=== PATIENT | female | born 1945 | race Caucasian/White ===

== ENCOUNTER 2017-03-23 13:17 | Inpatient (IN) | payer OTHER ==
[~2017-03-23] VITALS: Ht 167.6 cm; Wt 109.1 kg
[~2017-03-23 13:17] MED LIST: AMITRIPTYLINE H25 MG; ASPIRIN E.C.81 MG; ATORVASTATIN CA10 M1 PO; BCOMPLEX; CIPROFLOXACIN500 MG PO; CITALOPRAM20 MG; DETROL LA4 MG; FOLIC ACID; GLIMEPIRIDE2 MG PO; LISINOPRIL HCTZ1 TA1; METFORMIN HYDR500 MG PO; METFORMIN500 MG; NEURONTIN600 MG; OMEPRAZOLE D/R20 MG; RANITIDINE300 MG PO; SIMVASTATIN80 MG; VERELAN SR 240240 MG; VITAMIN D34000 UNIT PO; ZOFRAN ODT4 MG SL
[2017-03-23 13:18] VITALS: BP 148/99
--- NOTE | 2017-03-23 13:23 | NUR ---
PATIENT STATES THAT SHE DID NOT TAKE ANY OF HER MEDICATION TODAY. TRINI QUILES
[2017-03-23 13:44] LABS: BASO % 0.3 % (0.0-1.0); EOS % 0.3 % (1.0-4.0); HEMATOCRIT 37.9 % (37.0-47.0); HEMOGLOBIN 12.3 g/dl (12.0-16.0); LYMPH # 1.2 10*3/uL (1.3-4.4); LYMPH % 16.8 % (27.0-41.0); MEAN CELL VOLUME 91.1 fl (81.0-99.0); MEAN CORPUSCULAR HGB 29.6 pg (27.0-31.0); MEAN CORPUSCULAR HGB CONC 32.5 g/dl (33.0-37.0); MEAN PLATELET VOLUME 8.4 fl (9.6-12.3); MONO # 0.4 10*3/uL (0.1-1.0); MONO % 5.3 % (3.0-9.0); NEUT # 5.4 10*3/uL (2.3-7.9); PLATELET COUNT AUTOMATED 219 10*3/uL (130-400); RED BLOOD COUNT 4.16 10*6/uL (4.10-5.10); RED CELL DISTRI WIDTH 13.3 % (0-14.5)
[2017-03-23 13:53] LABS: ACT PARTIAL THROMBO TIME 24.3 SECONDS (20.8-31.5); INTERNATIONAL NORM RATIO 0.9 (2.0-3.5)
[2017-03-23 13:59] LABS: ALBUMIN 3.7 gm/dl (3.1-4.5); CREATININE 1.25 mg/dL (0.55-1.02); MAGNESIUM 1.9 mg/dL (1.5-2.1); POTASSIUM 4.3 mmol/L (3.5-5.1)
[2017-03-23] MEDS ORDERED: LISINOPRIL-HCT1 EACH PO (15:39)
[2017-03-23] MEDS ORDERED: NATURE'S BLEND F1 MG PO (15:41)
[2017-03-23 16:00] VITALS: BP 152/73
--- NOTE | 2017-03-23 16:00 | NUR ---
A 71, admitted to , under the services of DRE Partida DO with a diagnosis of RLQ AMDOMINAL PAIN, NAUSEA,VOMITING, AND DIARHHEA. Chief complaint is N/V THAT BEGAN LAST NIGHT ACCOMPANIED WITH DIARRHEA. CRAMPING IN RLQ. Patient arrived via stretcher from ER. Monitor applied. Initial assessment completed. Vital signs taken and recorded. DRE PARTIDA DO notified of admission to the unit. Orders received. See assessment for past medical history, medications and allergies. Patient and/or family oriented to unit. [address] visitation policy reviewed. Clothing/patient valuable form completed. HELDER HASSAN
[2017-03-23] MEDS ORDERED: VERAPAMIL HCL240 M2 PO (16:23)
[2017-03-23] MEDS ORDERED: NEURONTIN300 MG PO (16:23)
[2017-03-23] MEDS ORDERED: METFORMIN1000 MG PO (16:23)
--- NOTE | 2017-03-23 16:25 | NUR ---
VERIFIED MEDS WITH JT AT [facility]
--- NOTE | 2017-03-23 16:47 | NUR ---
DIANA STATED SHE ALREADY SPOKE WITH DR DE JESUS. NO NEED TO CALL.
--- NOTE | 2017-03-23 17:19 | NUR ---
PATIENT MEDICATED WITH IVP MORPHINE FOR PAIN 10/10 IN HER ABDOMEN.
--- NOTE | 2017-03-23 18:15 | NUR ---
PATIENT STATES MEDICATION EFFECTIVE
--- NOTE | 2017-03-23 18:24 | NUR ---
PATIENT MEDICATED WITH IVP ZOFRAN FOR NAUSEA
--- NOTE | 2017-03-23 18:52 | NUR ---
SPOKER WITH DIANA. PATIENT IS GETTING INSULIN ACHS AND BGM WAS ORDERED Q6. I CHANGED BGM TO ACHS. ALSO NOTIFIED DIANA THAT THE FIRST BAG OF D5NS WAS GIVEN BEFORE THE ORDER CAME UP TO GIVE 2 BAGS SO IT LOOKS LIKE 1 BAG WAS NOT GIVEN BUT IT WAS. SHE STATED THAT IS FINE.
[2017-03-23 20:00] VITALS: BP 131/55
[2017-03-24] VITALS: BP 130/59
--- NOTE | 2017-03-24 01:53 | NUR ---
24 HR chart check completed.
--- NOTE | 2017-03-24 06:04 | NUR ---
Medicated with Zofran IV prn for nausea. Will monitor effectiveness. Call light within reach.
[2017-03-24 06:23] LABS: BASO % 0.1 % (0.0-1.0); EOS % 0.1 % (1.0-4.0); HEMOGLOBIN 12.3 g/dl (12.0-16.0); LYMPH # 1.1 10*3/uL (1.3-4.4); LYMPH % 12.9 % (27.0-41.0); MEAN CELL VOLUME 92.2 fl (81.0-99.0); MEAN CORPUSCULAR HGB 29.9 pg (27.0-31.0); MEAN CORPUSCULAR HGB CONC 32.4 g/dl (33.0-37.0); MEAN PLATELET VOLUME 8.6 fl (9.6-12.3); MONO # 0.6 10*3/uL (0.1-1.0); MONO % 6.7 % (3.0-9.0); NEUT # 6.7 10*3/uL (2.3-7.9); NEUT % 79.8 % (47.0-73.0); PLATELET COUNT AUTOMATED 216 10*3/uL (130-400); RED BLOOD COUNT 4.12 10*6/uL (4.10-5.10); RED CELL DISTRI WIDTH 13.3 % (0-14.5); WHITE BLOOD COUNT 8.4 10*3/uL (4.8-10.8)
[2017-03-24 06:45] LABS: ALBUMIN 3.2 gm/dl (3.1-4.5); ALKALINE PHOSPHATASE 61 U/L (45-117); BUN 16 mg/dl (7-24); CHLORIDE 103 mmol/L (98-107); CHOLESTEROL 190 mg/dL (<200); CREATININE 1.01 mg/dL (0.55-1.02); FREE T4 1.17 ng/dl (0.76-1.46); HDL CHOLESTEROL 39 mg/dl (40-60); LDL CHOLESTEROL 109 mg/dL (9-159); MAGNESIUM 1.7 mg/dL (1.5-2.1); POTASSIUM 3.7 mmol/L (3.5-5.1); SGOT/AST 14 IU/L (3-35); SGPT/ALT 16 U/L (12-78); SODIUM 141 mmol/L (136-145); TOTAL PROTEIN 7.1 gm/dL (6.4-8.2); TRIGLYCERIDES 211 mg/dl (<150); VLDL CHOLESTEROL 42 mg/dL (6-40)
[2017-03-24 08:00] VITALS: BP 131/65
[2017-03-24 08:44] LABS: VITAMIN D, 25-HYDROXY 48.5 ng/mL (30-100)
[2017-03-24 12:00] VITALS: BP 136/87
[2017-03-24 16:00] VITALS: BP 140/65
[2017-03-24 20:00] VITALS: BP 138/60
[2017-03-25] VITALS: BP 140/60
--- NOTE | 2017-03-25 00:24 | NUR ---
24 HR chart check completed.
--- NOTE | 2017-03-25 00:48 | NUR ---
Medicated with Zofran IV prn for nausea. Will monitor effectiveness. Call light within reach.
--- NOTE | 2017-03-25 01:50 | NUR ---
Patient resting quietly in bed with eyes closed. Zofran effective. Will continue to monitor. Call light within reach.
[2017-03-25 05:52] LABS: BASO % 0.2 % (0.0-1.0); EOS % 0.1 % (1.0-4.0); HEMATOCRIT 39.4 % (37.0-47.0); HEMOGLOBIN 12.4 g/dl (12.0-16.0); LYMPH # 1.2 10*3/uL (1.3-4.4); LYMPH % 13.9 % (27.0-41.0); MEAN CELL VOLUME 92.9 fl (81.0-99.0); MEAN CORPUSCULAR HGB 29.2 pg (27.0-31.0); MEAN CORPUSCULAR HGB CONC 31.5 g/dl (33.0-37.0); MEAN PLATELET VOLUME 8.5 fl (9.6-12.3); MONO # 0.8 10*3/uL (0.1-1.0); MONO % 9.1 % (3.0-9.0); NEUT # 6.8 10*3/uL (2.3-7.9); PLATELET COUNT AUTOMATED 214 10*3/uL (130-400); RED BLOOD COUNT 4.24 10*6/uL (4.10-5.10); RED CELL DISTRI WIDTH 13.4 % (0-14.5); WHITE BLOOD COUNT 8.9 10*3/uL (4.8-10.8)
[2017-03-25 06:01] LABS: BUN 17 mg/dl (7-24); CHLORIDE 106 mmol/L (98-107); MAGNESIUM 1.8 mg/dL (1.5-2.1); PHOSPHOROUS 2.6 mg/dL (2.5-4.9); POTASSIUM 3.9 mmol/L (3.5-5.1); SODIUM 143 mmol/L (136-145)
[2017-03-25 08:00] VITALS: BP 120/64
--- NOTE | 2017-03-25 11:30 | NUR ---
DR. CHARLES NOTIFIED OF CONSULT. NEW ORDERS GIVEN.
[2017-03-25 12:00] VITALS: BP 130/61
[2017-03-25 16:00] VITALS: BP 139/61
--- NOTE | 2017-03-25 17:49 | NUR ---
IV SITE RIGHT FA INFILTRATED, IV REMOVED IV STARTED IN LEFT FOREARM, #22, FIRST ATTEMPT. BLOOD RETURN, FLUSHED WITHOUT DIFFICULTY.
[2017-03-25 20:00] VITALS: BP 127/45
--- NOTE | 2017-03-25 20:08 | NUR ---
PT. RESTING IN BED. IVF CONTINUE ORDERED VIA LA, SITE ASYMPT. LUNGS DIMINISHED BILAT, PULSE OX 97% ON RA. ABDOMEN SOFT, NONDISTENDED AND NORMO. NO PERIPHERAL EDEMA NOTED. FELY TOWNSEND RN
[2017-03-26] VITALS: BP 113/59
--- NOTE | 2017-03-26 06:00 | NUR ---
Patient resting quietly with no c/o discomfort. Respirations easy and regular. Vital signs stable. No overt distress. LIZZ FU R
[2017-03-26 08:00] VITALS: BP 138/62
--- NOTE | 2017-03-26 08:00 | NUR ---
Search Engine Marketing Specialist in to talk to patient. Patient states lives at [address] with HER BOYFRIEND. There are 3 steps in the home. Physician: DR RODRÍGUEZ [place] [facility] Home health services: NONE Patient's level of ADLs: INDEPENDENT Patient has working utilities: YES DME: NONE Follow-up physician's appointment after d/c: WILL BE MADE PRIOR TO DC Does patient want to access PORTAL?: Discharge plan HOME. LULY WHITTINGTON
[2017-03-26 12:00] VITALS: BP 112/63
--- NOTE | 2017-03-26 13:08 | NUR ---
PHYSICAL THERAPY PAtient reports she is (I) and has no PT needs. Thank you for this referral. Janiya Richard,PT
[2017-03-26 16:00] VITALS: BP 139/58
[2017-03-27] VITALS: BP 111/42
--- NOTE | 2017-03-27 03:00 | NUR ---
PT RESTING QUIETLY IN BED. NO FURHTER S/S OF DISTRESS NOTED. PAIN MED EFFECTIVE.
[2017-03-27 05:58] LABS: BASO % 0.2 % (0.0-1.0); EOS # 0.1 10*3/uL (0.0-0.4); LYMPH # 2.3 10*3/uL (1.3-4.4); LYMPH % 44.5 % (27.0-41.0); MEAN CELL VOLUME 91.2 fl (81.0-99.0); MEAN CORPUSCULAR HGB 29.2 pg (27.0-31.0); MEAN PLATELET VOLUME 8.6 fl (9.6-12.3); MONO # 0.4 10*3/uL (0.1-1.0); MONO % 6.9 % (3.0-9.0); NEUT # 2.4 10*3/uL (2.3-7.9); NEUT % 47.4 % (47.0-73.0); PLATELET COUNT AUTOMATED 184 10*3/uL (130-400); RED BLOOD COUNT 3.29 10*6/uL (4.10-5.10); RED CELL DISTRI WIDTH 13.1 % (0-14.5); WHITE BLOOD COUNT 5.1 10*3/uL (4.8-10.8)
[2017-03-27 06:14] LABS: HEMOGLOBIN 9.6 g/dl (12.0-16.0)
[2017-03-27 06:22] LABS: BUN 17 mg/dl (7-24); CHLORIDE 108 mmol/L (98-107); CREATININE 0.79 mg/dL (0.55-1.02); POTASSIUM 3.5 mmol/L (3.5-5.1); SODIUM 140 mmol/L (136-145)
[2017-03-27 08:00] VITALS: BP 126/50
--- NOTE | 2017-03-27 14:11 | NUR ---
Discharge instructions reviewed with patient/family. Patient receptive and verbalizes understanding. Follow-up care arranged. Written instructions given to patient/family. SINA DOMINGO.
== END 2017-03-27 14:11 | disposition home or self-care (01) | DRG 394 ==
LOC: ED 13:17 → 4E 15:11 → EDHOLD 15:11 → 4E 15:24
PROVIDERS: Emergency Medicine; Internal Medicine; Registered Nurse; ADMIT Internal Medicine
DX: K43.9 Ventral hernia without obstruction or gangrene (principal); K56.7 Ileus, unspecified; E11.40 Type 2 diabetes mellitus with diabetic neuropathy, unspecified; E11.65 Type 2 diabetes mellitus with hyperglycemia; E66.01 Morbid (severe) obesity due to excess calories; K21.9 Gastro-esophageal reflux disease without esophagitis; E78.5 Hyperlipidemia, unspecified; K57.30 Diverticulosis of large intestine without perforation or abscess without bleeding; N28.1 Cyst of kidney, acquired; E86.0 Dehydration; E86.9 Volume depletion, unspecified; Z96.653 Presence of artificial knee joint, bilateral; Z98.51 Tubal ligation status; Z90.49 Acquired absence of other specified parts of digestive tract; Z68.38 Body mass index [BMI] 38.0-38.9, adult; Z79.84 Long term (current) use of oral hypoglycemic drugs; Z79.899 Other long term (current) drug therapy; Z83.3 Family history of diabetes mellitus; Z82.49 Family history of ischemic heart disease and other diseases of the circulatory system; Z80.1 Family history of malignant neoplasm of trachea, bronchus and lung

== ENCOUNTER → 2017-05-30 | Day surgery (SDC) | payer OTHER ==
[~2017-05-30] VITALS: Ht 167.6 cm; Wt 98.4 kg
[~2017-05-30] MED LIST changes: +LISINOPRIL-HCT1 EACH PO; +METFORMIN1000 MG PO; +NATURE'S BLEND F1 MG PO; +NEURONTIN300 MG PO; +VERAPAMIL HCL240 M2 PO
--- NOTE | ~2017-05-30 | O ---
[place], [place] OPERATIVE NOTE NAME: KULDIP WEBER UNIT #: [id number] ROOM: DOCTOR: ADAM CHARLES MD BIRTHDATE: [birth year] DOS: GASTROENDOSCOPIC REPORT This is a 71-year-old patient who was presented with chief complaint of constipation, undergoing investigation. ALLERGIES: No known medication. FAMILY HISTORY: Noncontributory. PAST MEDICAL HISTORY: Depression, neuropathy, hypercholesterolemia. PAST SURGICAL HISTORY: Right carpal tunnel, cholecystectomy, bilateral feet podiatric management, and bilateral knee prosthesis. PROCEDURE: Today's procedure part of investigation is colonoscopy. PREMEDICATION: Versed and Diprivan. SCOPE: Olympus folding colonoscope 10L video. REPORT: After putting the patient in the left lateral position and after application of lubricant to the scope, scope was introduced; thereafter, under direct visualization, advanced through the length of colon with some difficulty. Difficulty being presence of semi-liquid stool throughout the entire length of colon; therefore, visualization was only limited to about 10%-15% to negotiate the scope forward. Therefore, scope was gradually withdrawn. The patient extubated, tolerated procedure well. IMPRESSION: Retained stool all along the length of the colon without visualization of the cecum, diverticulosis per CT scan. PLAN AND DISCUSSION: This patient requires 2-day colonic prep, which is going to be organized in future. [place], [place] OPERATIVE NOTE NAME: KULDIP WEBER UNIT #: [id number] ROOM: DOCTOR: ADAM CHARLES MD BIRTHDATE: [birth year] ADAM CHARLES MD CM:OPRECORD:OPERATIVE NOTE [id number] ADAM CHARLES MD 05/30/17 1032 interface
[2017-05-30 07:20] VITALS: BP 135/75
[2017-05-30 08:27] VITALS: BP 111/43
[2017-05-30 08:42] VITALS: BP 110/69
[2017-05-30 08:57] VITALS: BP 122/65
== END | disposition home or self-care (01) ==
LOC: SDC 05-25 09:30
DX: K57.30 Diverticulosis of large intestine without perforation or abscess without bleeding (principal); K59.00 Constipation, unspecified; F32.9 Major depressive disorder, single episode, unspecified; E78.00 Pure hypercholesterolemia, unspecified; I10 Essential (primary) hypertension; E11.9 Type 2 diabetes mellitus without complications; Z87.891 Personal history of nicotine dependence; Z90.49 Acquired absence of other specified parts of digestive tract; Z96.653 Presence of artificial knee joint, bilateral; Z98.51 Tubal ligation status; Z79.84 Long term (current) use of oral hypoglycemic drugs; Z79.899 Other long term (current) drug therapy; K21.9 Gastro-esophageal reflux disease without esophagitis; J45.909 Unspecified asthma, uncomplicated; M19.90 Unspecified osteoarthritis, unspecified site; Z83.3 Family history of diabetes mellitus

== ENCOUNTER → 2020-01-07 | Day surgery (SDC) | payer MEDICARE ==
[~2020-01-07] VITALS: Ht 167.6 cm; Wt 114.8 kg
[~2020-01-07] MED LIST changes: +ASPIRIN CHEWABL81 MG PO; +CITALOPRAM20 MG PO; +FUROSEMIDE40 MG PO; +HYDRALAZINE10 MG PO; +LIPITOR10 MG PO; +OFLOXACIN 5 ML5 M1 OP; +OMEPRAZOLE MAGN20 MG PO; +TOPROL XL25 MG PO
[2020-01-07 07:30] VITALS: BP 165/64
[2020-01-07 09:05] VITALS: BP 142/60
== END | disposition home or self-care (01) ==
LOC: SDC 01-01 08:45
DX: H25.12 Age-related nuclear cataract, left eye (principal); I10 Essential (primary) hypertension; E11.36 Type 2 diabetes mellitus with diabetic cataract; K21.9 Gastro-esophageal reflux disease without esophagitis; Z79.82 Long term (current) use of aspirin; Z79.84 Long term (current) use of oral hypoglycemic drugs; Z79.899 Other long term (current) drug therapy; Z83.3 Family history of diabetes mellitus

== ENCOUNTER 2020-01-14 13:35 | Inpatient (IN) | payer MEDICARE ==
[~2020-01-14] VITALS: Ht 167.6 cm; Wt 117.1 kg
[2020-01-14] VITALS (18 sets, daily range): BP systolic 101–149; BP diastolic 42–66
[~2020-01-14 13:35] MED LIST changes: -OFLOXACIN 5 ML5 M1 OP
[2020-01-14 14:31] LABS: MEAN CELL VOLUME 61.8 fl (81.0-99.0); MEAN CORPUSCULAR HGB 14.7 pg (27.0-31.0); MEAN CORPUSCULAR HGB CONC 23.8 g/dl (33.0-37.0); MEAN PLATELET VOLUME 9.3 fl (9.6-12.3); NUCLEATED RED BLOOD CELL 0.1 10*3/uL (0.0-0.0); NUCLEATED RED BLOOD CELL 1.3 % (0.0-0.0); PLATELET COUNT AUTOMATED 291 10*3/uL (130-400); RED BLOOD COUNT 2.59 10*6/uL (4.10-5.10); RED CELL DISTRI WIDTH 21.7 % (0-14.5); WHITE BLOOD COUNT 4.6 10*3/uL (4.8-10.8)
[2020-01-14 14:43] LABS: ACT PARTIAL THROMBO TIME 21.7 SECONDS (20.0-32.1); INTERNATIONAL NORM RATIO 1.1 (2.0-3.5)
--- NOTE | 2020-01-14 14:55 | NUR ---
PT ASSISTED UP TO BSC TO VOID---AZEEM SIBLEY RN
[2020-01-14 15:00] LABS: ALBUMIN 3.1 gm/dl (3.1-4.5); ALKALINE PHOSPHATASE 48 U/L (45-117); BUN 17 mg/dl (7-24); CHLORIDE 105 mmol/L (98-107); CREATININE 1.16 mg/dL (0.55-1.02); POTASSIUM 3.6 mmol/L (3.5-5.1); SGOT/AST 14 IU/L (3-35); SGPT/ALT 18 U/L (12-78); SODIUM 141 mmol/L (136-145)
[2020-01-14 15:04] LABS: TROPONIN I < 0.015 ng/ml (<0.045)
[2020-01-14 15:05] LABS: BASOPHILS 1 % (0-1); TOTAL CELLS COUNTED 100 #CELLS
[2020-01-14 15:06] LABS: OVALOCYTES FEW; PLATELET SUFFICIENCY NORMAL (NORMAL)
--- NOTE | 2020-01-14 17:02 | NUR ---
A 74, admitted to [facility], under the services of CARLA Marshall DO with a diagnosis of Anemia. Chief complaint is weakness and increasing shortness of breath. Patient arrived via stretcher from ER. Monitor applied. Initial assessment completed. Vital signs taken and recorded. CARLA MARSHALL DO notified of admission to the unit. Orders received. See assessment for past medical history, medications and allergies. Patient and/or family oriented to unit. [facility] visitation policy reviewed. Clothing/patient valuable form completed. DOTTIE WORTHY
--- NOTE | 2020-01-14 17:20 | NUR ---
DR WALTERS NOTIFIED OF CONSULT. NEW ORDERS RECEIVED FOR EGD IN AM.
--- NOTE | 2020-01-14 17:29 | NUR ---
DR HALL UPDATED ON PLAN OF CARE. DIET ORDER RECEIVED.
--- NOTE | 2020-01-14 17:40 | NUR ---
FIRST UNIT OF BLOOD STARTED. VSS. PT INSTRUCTED ON S/S BLOOD TRANSFUSION REACTION AND TO NOTIFY RN IF ANY. PT VERBALIZED UNDERSTANDING.
--- NOTE | 2020-01-14 17:55 | NUR ---
BLOOD TRNAFUSING WITHOUT DIFFICULTY. PT DENIES COMPLAINTS AT PRESENT TIME.
--- NOTE | 2020-01-14 18:15 | NUR ---
VSS. NO DISTRESS NOTED. PT DENIES COMPLAINTS. BLOOD CONTINUES TO TRANSFUSE WITHOUT DIFFICULTY.
--- NOTE | 2020-01-14 18:50 | NUR ---
Shift chart check completed.24 HR chart check completed.
--- NOTE | 2020-01-14 19:40 | NUR ---
ON ASSESSMENT PATIENT ALERT, ORIENTED, WATCHING TV. PACKED CELLS INFUSING WITHOUT SIGNS OF REACTION. INFUSION RATE INCREASED TO 150/HR. PATIENT AWARE SHE'S FOR EGD IN AM. WILL CONTINUE TO MONITOR.
--- NOTE | 2020-01-14 20:54 | NUR ---
TRANSFUSION COMPLETE. SENT FOR 2ND UNIT.
--- NOTE | 2020-01-14 21:09 | NUR ---
Patient identified by arm band. Vital signs recorded. Blood unit number verified by 2 R.N.'s,myself and Martina Palacio I.V. site satisfactory. Unit #2 started at a KVO rate with Normal Saline. MARGUERITE SILVA L
--- NOTE | 2020-01-14 21:24 | NUR ---
PT IN CONSTANT ATTENDANCE FOR FIRST 15 MINUTES TRANSFUSION. NO APPARENT IMMEDIATE TRANSFUSION REACTION. INFUSION RATE INCREASED TO 150/HR.
--- NOTE | 2020-01-14 21:29 | NUR ---
DR REYNOLDS NOTIFIED THAT MEDS ARE RECONCILED IN THE CHART. ORDERS RECEIVED. ALSO INFORMED HIM THAT I DID NOT COVER PT'S BSBS OF 151 PT DOESN'T NORMALLY TAKE INSULIN AND SHE WILL BE NPO AFTER MIDNIGHT.
--- NOTE | 2020-01-14 22:28 | NUR ---
TRANSFUSION CONTINUES. PT WANTS TO WAIT UNTIL MORNING TO DO HIBICLENS BATH.
[2020-01-15] VITALS (18 sets, daily range): BP systolic 116–171; BP diastolic 47–78
--- NOTE | 2020-01-15 00:12 | NUR ---
TRANSFUSION COMPLETE AT 0003. PT UP TO BSC TO VOID. REMINDED NPO FOR EGD IN AM.
[2020-01-15 01:59] LABS: MEAN CORPUSCULAR HGB CONC 27.5 g/dl (33.0-37.0); MEAN PLATELET VOLUME 9.5 fl (9.6-12.3); NUCLEATED RED BLOOD CELL 0.1 10*3/uL (0.0-0.0); NUCLEATED RED BLOOD CELL 0.8 % (0.0-0.0); PLATELET COUNT AUTOMATED 255 10*3/uL (130-400); RED BLOOD COUNT 2.94 10*6/uL (4.10-5.10); RED CELL DISTRI WIDTH 26.7 % (0-14.5); WHITE BLOOD COUNT 6.3 10*3/uL (4.8-10.8)
[2020-01-15 02:00] LABS: MEAN CELL VOLUME 69.4 fl (81.0-99.0)
[2020-01-15 02:02] LABS: HEMATOCRIT 20.4 % (37.0-47.0)
--- NOTE | 2020-01-15 02:04 | NUR ---
DR REYNOLDS NOTIFIED OF CRITICAL VALUE H/H 5.6/20.4.
[2020-01-15 02:19] LABS: MICROCYTOSIS MODERATE; PLATELET SUFFICIENCY NORMAL (NORMAL); TOTAL CELLS COUNTED 100 #CELLS
[2020-01-15 02:20] LABS: OVALOCYTES FEW; POLYCHROMASIA SLIGHT
--- NOTE | 2020-01-15 02:40 | NUR ---
IV LASIX PER ORDER. Patient identified by arm band. Vital signs recorded. Blood unit number verified by 2 R.N.'s,myself and Rosemarie Olguin I.V. site satisfactory. Unit#3 started at a KVO rate with Normal Saline. MARGUERITE SILVA L
--- NOTE | 2020-01-15 02:57 | NUR ---
STARTING TO STANLEY FROM IV LASIX.
--- NOTE | 2020-01-15 03:00 | NUR ---
PT IN CONSTANT ATTENDANCE FIRST 20 MINUTES OF TRANSFUSION, WITHOUT ANY SIGNS OF IMMEDIATE REACTION. INFUSION RATE INCREASED TO 150/HR.
--- NOTE | 2020-01-15 03:49 | NUR ---
PT UP TO BSC FREQUENTLY TO VOID AFTER EARLIER LASIX. TRANSFUSION CONTINUES.
--- NOTE | 2020-01-15 05:20 | NUR ---
KULDIP WEBER [id number] Please refer to the physician's history and physical for past medical history, comorbid conditions, and allergies. Diagnosis: ANEMIA Wilfredo Score: 19,LOW OR NO RISK WOUND DESCRIPTIONS: Wound Number: 1 Location of the wound: LEFT EAR LOBE Type of wound: scab Thickness: Partial Size: 0.4cm x 0.3cm x <0.1cm Tunneling: none Undermining: none Sinus Tract: none Presence of Exudate: none Amount: None Color: Red, brown Odor: None Periwound Skin Appearance: Normal Wound edges: approximated Pain (associated with wound): none at time of assessment How does patient state this happened? pt stated she keeps picking at the area she stated she has had the area for a little while now but is unsure how long Surface the patient is resting on: Isoflex SKIN PREVENTION RECOMMENDATION: 1. Pressure redistribution support surface as appropriate 2. Elevate heels 3. Remove boots/TEDS every shift and reapply 4. Head of bed 30 degrees as tolerated 5. Assess nutrition and hydration 6. Manage moisture 7. Avoid the use of containment devices while in bed 8. Use absorptive products on surfaces limit layers of linens on bed 9. Turn and reposition every 1-2 hours in bed and every 1 hour in chair as tolerated 10. Weight shifts every 15 minutes while up in chair 11. Offloading with pillows or device to keep heels elevated off bed 12. Monitor skin at least every shift 13. Inspect under medical devices twice a day WOUND TREATMENT RECOMMENDATIONS: Cleanse left ear lobe with nss and apply neosporin bid and cover with bandaid Patient states she will care for the area when she returns home and doesn't need to follow up in an outpatient setting at this time.
--- NOTE | 2020-01-15 05:30 | NUR ---
TRANSFUSION COMPLETE WITHOUT COMPLICATIONS.
[2020-01-15 07:40] LABS: HEMATOCRIT 24.5 % (37.0-47.0); MEAN CELL VOLUME 70.2 fl (81.0-99.0); MEAN CORPUSCULAR HGB 20.1 pg (27.0-31.0); MEAN CORPUSCULAR HGB CONC 28.6 g/dl (33.0-37.0); MEAN PLATELET VOLUME 8.9 fl (9.6-12.3); NUCLEATED RED BLOOD CELL 0.1 10*3/uL (0.0-0.0); NUCLEATED RED BLOOD CELL 1.2 % (0.0-0.0); PLATELET COUNT AUTOMATED 238 10*3/uL (130-400); RED BLOOD COUNT 3.49 10*6/uL (4.10-5.10); RED CELL DISTRI WIDTH 25.7 % (0-14.5); WHITE BLOOD COUNT 5.9 10*3/uL (4.8-10.8)
--- NOTE | 2020-01-15 07:40 | NUR ---
Dr. Gregg notified of wound care recommendations.
[2020-01-15 07:51] LABS: BUN 13 mg/dl (7-24); CHLORIDE 105 mmol/L (98-107); CREATININE 0.99 mg/dL (0.55-1.02); POTASSIUM 3.5 mmol/L (3.5-5.1); SODIUM 141 mmol/L (136-145)
[2020-01-15 07:54] LABS: CHOLESTEROL 76 mg/dL (<200); HDL CHOLESTEROL 33 mg/dl (40-60); LDL CHOLESTEROL 26 mg/dL (9-159); TRIGLYCERIDES 84 mg/dl (<150); VLDL CHOLESTEROL 17 mg/dL (6-40)
[2020-01-15 07:59] LABS: BASOPHILS 1 % (0-1); OVALOCYTES FEW; SCHISTOCYTES FEW; TOTAL CELLS COUNTED 100 #CELLS
[2020-01-15 08:00] LABS: MICROCYTOSIS MODERATE; PLATELET SUFFICIENCY NORMAL (NORMAL); POLYCHROMASIA SLIGHT; ROULEAUX SLIGHT; TARGET CELLS FEW
--- NOTE | 2020-01-15 08:12 | NUR ---
CONSENT OBTAINED FOR ESOPHAGOGASTRODUODENOSCOPY PROCEDURE WITH DR WALTERS. RN EXPLAINED REASON FOR PROCEDURE AND POSSIBLE RISKS. PATIENT VERBALIZED UNDERSTANDING.
--- NOTE | 2020-01-15 08:29 | NUR ---
PATIENT AWARE THAT SURGERY IS ON THEIR WAY, HAS ALREADY BEEN UP TO URINATE AND DENIES ANY NEEDS AT THIS TIME
[2020-01-15 09:29] LABS: VITAMIN D, 25-HYDROXY 68.3 ng/mL (30-100)
--- NOTE | 2020-01-15 15:30 | NUR ---
PATIENT BACK FROM NUCULEAR MEDICINE SCAN AT THIS TIME. PATIENT IN STABLE CONDITION. ALL VITAL SIGNS STABLE. DR EGAN AND DR HALL IN TO PATIENT.
--- NOTE | 2020-01-15 15:44 | NUR ---
NURSING SUOERVISOR AWARE OF TRANSFER TO [facility]
--- NOTE | 2020-01-15 16:28 | NUR ---
Financial Services Professional in to talk to patient. Patient states lives at HOME with BOYFRIEND. There are NO steps in the home. Physician: ANNE Pharmacy: [facility] Home health services: NONE Patient's level of ADLs: INDEPENDENT Patient has working utilities: YES DME: NONE Follow-up physician's appointment after d/c: WILL BE MADE BY HOSPITALIST NURSE DIRECTOR ON DISCHARGE Does patient want to access PORTAL?: NO Discharge plan PT LIVES AT HOME WITH HER BOYFRIEND AND IS INDEPENDENT IN HER CARE. DENIES SHE WILL HAVE ANY NEEDS ON DISCHARGE. PLANS TO RETURN HOME WHEN MEDICALLY STABLE. WILL CONTINUE TO FOLLOW. STATES SHE WILL HAVE A RIDE HOME. BENJAMIN KHAN
[2020-01-15] MEDS ORDERED: OFLOXACIN 5 ML5 M1 OP (16:29)
--- NOTE | 2020-01-15 20:07 | NUR ---
1930 PT RESTING IN BED ON LEFT SIDE. CALL LIGHT IN REACH. AWAKE AND ALERT. NO DISTRESS NOTED. DENIES C/O'S PAIN OR DISCOMFORT AT THIS TIME. HEP LOCK INTACT.
--- NOTE | 2020-01-15 21:04 | NUR ---
2104 RESTORIL PO GIVEN FOR SLEEP. WILL MONITOR.
--- NOTE | 2020-01-15 22:04 | NUR ---
2204 EARLIER RESTORIL EFFECTIVE. RESTING IN BED WITH EYES CLOSED. APPEARS TO BE SLEEPING.
[2020-01-16] VITALS (12 sets, daily range): BP systolic 127–171; BP diastolic 45–79
--- NOTE | 2020-01-16 02:49 | NUR ---
REMAINS SLEEPING WITHOUT DISTRESS.
[2020-01-16 06:01] LABS: BUN 11 mg/dl (7-24); CHLORIDE 108 mmol/L (98-107); CREATININE 0.82 mg/dL (0.55-1.02); POTASSIUM 3.7 mmol/L (3.5-5.1); SODIUM 142 mmol/L (136-145)
[2020-01-16 06:02] LABS: IRON 22 ug/dL (50-170); TOTAL IRON BINDING CAPACITY 354 ug/dl (250-450)
[2020-01-16 06:07] LABS: HEMATOCRIT 23.5 % (37.0-47.0); MEAN CELL VOLUME 68.7 fl (81.0-99.0); MEAN CORPUSCULAR HGB 19.9 pg (27.0-31.0); MEAN CORPUSCULAR HGB CONC 28.9 g/dl (33.0-37.0); MEAN PLATELET VOLUME 9.1 fl (9.6-12.3); NUCLEATED RED BLOOD CELL 0.1 10*3/uL (0.0-0.0); NUCLEATED RED BLOOD CELL 0.8 % (0.0-0.0); PLATELET COUNT AUTOMATED 209 10*3/uL (130-400); RED BLOOD COUNT 3.42 10*6/uL (4.10-5.10); WHITE BLOOD COUNT 6.6 10*3/uL (4.8-10.8)
--- NOTE | 2020-01-16 06:11 | NUR ---
SLEPT WELL THIS SHIFT. REMAINS WIHTOUT C/O'S.
[2020-01-16 06:48] LABS: BASOPHILS 1 % (0-1); TOTAL CELLS COUNTED 100 #CELLS
[2020-01-16 06:49] LABS: MICROCYTOSIS MODERATE; OVALOCYTES FEW; PLATELET SUFFICIENCY NORMAL (NORMAL); POLYCHROMASIA SLIGHT; ROULEAUX MODERATE
[2020-01-16 06:56] LABS: RETICULOCYTE % 1.24 % (0.50-2.50)
--- NOTE | 2020-01-16 07:54 | NUR ---
Dr. Gregg notified of wound care recommendations.
--- NOTE | 2020-01-16 08:05 | NUR ---
4TH RBC STARTED PT ALERT AND ORIENTED/COOPERATIVE UP TO RECLINER USES BCS INDEPENDENTLY IV TO RARM PATENT
--- NOTE | 2020-01-16 11:55 | NUR ---
4TH RBC COMPLETED
--- NOTE | 2020-01-16 12:15 | NUR ---
PT DENIES ANY NEEDS AT HOME ON DISCHARGE. WILL CONTINUE TO FOLLOW.
--- NOTE | 2020-01-16 14:00 | NUR ---
NAPPING NO CHANGE IN ASSESSMENT
--- NOTE | 2020-01-16 17:11 | NUR ---
DINNER TAKEN NO RECTAL BLEEDING OR TARRY BMS TODAY NO VOICED C/O
--- NOTE | 2020-01-16 20:07 | NUR ---
PT. RESTING IN BED, UP TO BSC UNASSISTED, GAIT STEADY. HEP LOCK IN RA ASYMPT. LUNGS DIMINISHED BILAT, PULSE OX 94-95% ON RA. ABDOMEN SOFTLY DISTENDED AND HYPOACTIVE. 2+BLE EDEMA OF LOWER EXTREMITIES. RESP. EASY AND REG, NO DISTRESS. FELY TOWNSEND, RN
[2020-01-17] VITALS: BP 150/55
[2020-01-17 06:04] LABS: BASO % 0.7 % (0.0-1.0); EOS # 0.1 10*3/uL (0.0-0.4); EOS % 1.5 % (1.0-4.0); HEMATOCRIT 27.2 % (37.0-47.0); LYMPH # 1.7 10*3/uL (1.3-4.4); LYMPH % 28.7 % (27.0-41.0); MEAN CORPUSCULAR HGB 20.9 pg (27.0-31.0); MEAN CORPUSCULAR HGB CONC 28.3 g/dl (33.0-37.0); MEAN PLATELET VOLUME 8.8 fl (9.6-12.3); MONO # 0.6 10*3/uL (0.1-1.0); MONO % 9.8 % (3.0-9.0); NEUT # 3.5 10*3/uL (2.3-7.9); NEUT % 58.8 % (47.0-73.0); NUCLEATED RED BLOOD CELL 0.1 10*3/uL (0.0-0.0); PLATELET COUNT AUTOMATED 192 10*3/uL (130-400); RED BLOOD COUNT 3.69 10*6/uL (4.10-5.10); RED CELL DISTRI WIDTH 27.8 % (0-14.5); WHITE BLOOD COUNT 5.9 10*3/uL (4.8-10.8)
[2020-01-17 06:10] LABS: BUN 12 mg/dl (7-24); CHLORIDE 108 mmol/L (98-107); CREATININE 0.84 mg/dL (0.55-1.02); POTASSIUM 3.4 mmol/L (3.5-5.1); SODIUM 141 mmol/L (136-145)
[2020-01-17 06:43] LABS: MEAN CELL VOLUME 73.7 fl (81.0-99.0)
[2020-01-17 08:00] VITALS: BP 168/74
--- NOTE | 2020-01-17 09:16 | NUR ---
PT AAOX3. RESP. EASY. VSS. PT DENIES COMPLAINTS. NO ACUTE DISTRESS NOTED. PT ORDERING BREAKFAST.
--- NOTE | 2020-01-17 10:08 | NUR ---
DR RODRIGUEZ IN TO SEE PT.
--- NOTE | 2020-01-17 14:25 | NUR ---
PT TRANSFERED TO [facility] VIA BED. PT REPORT GIVEN TO RECEIVING NURSE.
--- NOTE | 2020-01-17 15:20 | NUR ---
PT RESTINGIN BED. NO DISTRESS NOTED. WILL MONITOR
[2020-01-17 16:00] VITALS: BP 166/64
--- NOTE | 2020-01-17 20:00 | NUR ---
PATIENT VOICED NO COMPLAINTS. NO DISTRESS NOTED. RESP ARE ERND ON ROOM AIR. CALL LIGTH WITHIN REACH
--- NOTE | 2020-01-17 21:00 | NUR ---
PATIENT VOICED NO COMPLAINTS, NO DISTRESS NOTED. [place] LIGHT LEFT WITHIN REACH
[2020-01-18] VITALS: BP 138/50
[2020-01-18 06:05] LABS: BUN 17 mg/dl (7-24); CHLORIDE 110 mmol/L (98-107); CREATININE 0.84 mg/dL (0.55-1.02); POTASSIUM 3.6 mmol/L (3.5-5.1); SODIUM 143 mmol/L (136-145)
[2020-01-18 06:07] LABS: BASO % 0.5 % (0.0-1.0); EOS # 0.1 10*3/uL (0.0-0.4); EOS % 1.8 % (1.0-4.0); HEMATOCRIT 28.6 % (37.0-47.0); LYMPH # 1.7 10*3/uL (1.3-4.4); LYMPH % 29.6 % (27.0-41.0); MEAN CELL VOLUME 75.5 fl (81.0-99.0); MEAN CORPUSCULAR HGB 20.8 pg (27.0-31.0); MEAN CORPUSCULAR HGB CONC 27.6 g/dl (33.0-37.0); MEAN PLATELET VOLUME 8.8 fl (9.6-12.3); MONO # 0.5 10*3/uL (0.1-1.0); MONO % 9.5 % (3.0-9.0); NEUT # 3.3 10*3/uL (2.3-7.9); NEUT % 58.2 % (47.0-73.0); NUCLEATED RED BLOOD CELL 0.5 % (0.0-0.0); PLATELET COUNT AUTOMATED 213 10*3/uL (130-400); RED BLOOD COUNT 3.79 10*6/uL (4.10-5.10); RED CELL DISTRI WIDTH 28.7 % (0-14.5); WHITE BLOOD COUNT 5.6 10*3/uL (4.8-10.8)
--- NOTE | 2020-01-18 08:30 | NUR ---
0800 AM ASSESMENT COMPLETE. PT RESTING IN BED. LUNGS ARE DIMINISHED ON RA. BOWEL SOUNDS ARE ACTIVE. DENIES C/O AT THIS TIME. BED IS IN LOW LOCKED POSITION. CALL LIGHT IS WITHIN REACH. WILL MONITOR
[2020-01-18 16:00] VITALS: BP 126/46
--- NOTE | 2020-01-18 21:00 | NUR ---
PATIENT VOICED NO COMPLAINTS. NO DISTRESS NOTED, RESP ARE ERND ON ROOM AIR. CALL LIGHT WITHIN REACH
[2020-01-19] VITALS: BP 160/64
[2020-01-19 06:49] LABS: BASO # 0.1 10*3/uL (0.0-0.1); BASO % 0.8 % (0.0-1.0); EOS # 0.1 10*3/uL (0.0-0.4); EOS % 1.6 % (1.0-4.0); HEMATOCRIT 28.9 % (37.0-47.0); LYMPH % 32.3 % (27.0-41.0); MEAN CELL VOLUME 74.3 fl (81.0-99.0); MEAN CORPUSCULAR HGB 21.3 pg (27.0-31.0); MEAN CORPUSCULAR HGB CONC 28.7 g/dl (33.0-37.0); MEAN PLATELET VOLUME 8.7 fl (9.6-12.3); MONO # 0.6 10*3/uL (0.1-1.0); MONO % 10.3 % (3.0-9.0); NEUT # 3.4 10*3/uL (2.3-7.9); NEUT % 54.5 % (47.0-73.0); NUCLEATED RED BLOOD CELL 0.6 % (0.0-0.0); PLATELET COUNT AUTOMATED 229 10*3/uL (130-400); RED BLOOD COUNT 3.89 10*6/uL (4.10-5.10); RED CELL DISTRI WIDTH 29.5 % (0-14.5); WHITE BLOOD COUNT 6.2 10*3/uL (4.8-10.8)
[2020-01-19 08:00] VITALS: BP 151/59
--- NOTE | 2020-01-19 09:30 | NUR ---
PT RESTING IN BED. NO DISTRESS NOTED. WILL MONITOR
--- NOTE | 2020-01-19 09:49 | NUR ---
PHYSICAL THERAPY Initial eval done at bedside. please see eval for details. Brief recap: bed mobility and transfers require contact guard assist and safety cues; gait on level 80' slow speed, CG assist with SOB noted and need for rest break. recommend SNF for strengthening/functional training prior to dc home. Shana Gerard, PT
--- NOTE | 2020-01-19 12:10 | NUR ---
NURSE DISCHARGE PLANNER IN TO TALK WITH PT ABOUT SNF STAY. PT STATES SHE IS NOT GOING TO A SNF. SHE WANTS TO GO HOME. ASK PT IS SHE WANTED HOME HEALTH AT HOME BUT SHE ALSO DENIES THEM. STATES SHE DOES NOT NEED IT. HOSPITALIST NURSE DIRECTOR NOTIFIED.
[2020-01-19 15:58] VITALS: BP 165/75
--- NOTE | 2020-01-19 16:45 | NUR ---
Discharge instructions reviewed with patient/family. Patient receptive and verbalizes understanding. Follow-up care arranged. Written instructions given to patient/family. NITA BRADSHAW
== END 2020-01-19 16:45 | disposition home or self-care (01) | DRG 811 ==
LOC: ED 13:35 → 4E 15:45 → EDHOLD 15:45 → ICCU 15:45 → 4E 01-17 14:18
PROVIDERS: Emergency Medicine; Internal Medicine; Student in an Organized Health Care Education/Training Program; ADMIT Family Medicine
PROC: 30233N1 Transfusion of Nonautologous Red Blood Cells into Peripheral Vein, Percutaneous Approach (ICD-10-PCS; principal; 2020-01-14)
PROC: 0DJ08ZZ Inspection of Upper Intestinal Tract, Via Natural or Artificial Opening Endoscopic (ICD-10-PCS; 2020-01-15)
DX: D50.9 Iron deficiency anemia, unspecified (principal); K29.71 Gastritis, unspecified, with bleeding; Z68.41 Body mass index [BMI] 40.0-44.9, adult; D72.819 Decreased white blood cell count, unspecified; R06.00 Dyspnea, unspecified; Z96.653 Presence of artificial knee joint, bilateral; E11.65 Type 2 diabetes mellitus with hyperglycemia; E78.5 Hyperlipidemia, unspecified; K44.9 Diaphragmatic hernia without obstruction or gangrene; E78.1 Pure hyperglyceridemia; E66.01 Morbid (severe) obesity due to excess calories; E11.40 Type 2 diabetes mellitus with diabetic neuropathy, unspecified; I10 Essential (primary) hypertension; K21.0 Gastro-esophageal reflux disease with esophagitis; Z98.49 Cataract extraction status, unspecified eye; Z90.49 Acquired absence of other specified parts of digestive tract; Z98.51 Tubal ligation status; Z82.49 Family history of ischemic heart disease and other diseases of the circulatory system; Z80.1 Family history of malignant neoplasm of trachea, bronchus and lung; Z83.3 Family history of diabetes mellitus; Z84.89 Family history of other specified conditions; Z79.82 Long term (current) use of aspirin; Z79.899 Other long term (current) drug therapy

== ENCOUNTER → 2020-01-28 | Day surgery (SDC) | payer MEDICARE ==
[~2020-01-28] VITALS: Ht 172.7 cm; Wt 114.8 kg
[~2020-01-28] MED LIST changes: +OFLOXACIN 5 ML5 M1 OP
[2020-01-28 08:15] VITALS: BP 158/62
[2020-01-28 09:05] VITALS: BP 141/68
[2020-01-28 09:20] VITALS: BP 130/76
[2020-01-28 09:35] VITALS: BP 130/77
== END | disposition home or self-care (01) ==
LOC: SDC 01-22 08:45
DX: H25.11 Age-related nuclear cataract, right eye (principal); I10 Essential (primary) hypertension; E11.9 Type 2 diabetes mellitus without complications; K21.9 Gastro-esophageal reflux disease without esophagitis; Z87.891 Personal history of nicotine dependence; Z98.890 Other specified postprocedural states; Z79.899 Other long term (current) drug therapy; Z83.3 Family history of diabetes mellitus

== ENCOUNTER 2020-10-15 21:21 | Inpatient (IN) | payer MEDICARE ==
[~2020-10-15] VITALS: Ht 167.6 cm; Wt 103.7 kg
[~2020-10-15 21:21] MED LIST changes: +CALAN SR240 MG PO; +METFORMIN HYD1000 MG PO; -METFORMIN1000 MG PO; -VERAPAMIL HCL240 M2 PO
[2020-10-15 21:32] VITALS: BP 160/61
[2020-10-15 21:54] LABS: MEAN CELL VOLUME 69.2 fl (81.0-99.0); MEAN CORPUSCULAR HGB 16.5 pg (27.0-31.0); MEAN CORPUSCULAR HGB CONC 23.8 g/dl (33.0-37.0); MEAN PLATELET VOLUME 8.6 fl (9.6-12.3); NUCLEATED RED BLOOD CELL 0.3 % (0.0-0.0); PLATELET COUNT AUTOMATED 272 10*3/uL (130-400); RED BLOOD COUNT 2.79 10*6/uL (4.10-5.10); RED CELL DISTRI WIDTH 19.5 % (0-14.5); WHITE BLOOD COUNT 5.8 10*3/uL (4.8-10.8)
[2020-10-15 22:00] LABS: HEMATOCRIT 19.3 % (37.0-47.0)
[2020-10-15 22:07] LABS: ALBUMIN 3.4 gm/dl (3.1-4.5); ALKALINE PHOSPHATASE 58 U/L (45-117); BUN 21 mg/dl (7-24); CHLORIDE 106 mmol/L (98-107); CREATININE 1.15 mg/dL (0.55-1.02); SGPT/ALT 12 U/L (12-78); SODIUM 140 mmol/L (136-145); TOTAL PROTEIN 7.3 gm/dL (6.4-8.2)
[2020-10-15 22:08] LABS: SGOT/AST < 3 IU/L (3-35)
[2020-10-15 22:26] LABS: OVALOCYTES MODERATE; TOTAL CELLS COUNTED 100 #CELLS
[2020-10-15 22:27] LABS: MICROCYTOSIS MODERATE
[2020-10-15 22:28] LABS: PLATELET SUFFICIENCY NORMAL (NORMAL)
[2020-10-15 22:45] VITALS: BP 148/56
[2020-10-15 23:31] VITALS: BP 158/70
[2020-10-15 23:53] VITALS: BP 159/84
[2020-10-16] VITALS (19 sets, daily range): BP systolic 134–165; BP diastolic 41–82
[2020-10-16] MEDS ORDERED: POTASSIUM CHLO20 ME3 PO (00:50)
[2020-10-16] MEDS ORDERED: METOPROLOL TART50 M1 PO (00:51)
[2020-10-16 06:14] LABS: HEMATOCRIT 22.8 % (37.0-47.0); MEAN CELL VOLUME 70.2 fl (81.0-99.0); MEAN CORPUSCULAR HGB 18.5 pg (27.0-31.0); MEAN CORPUSCULAR HGB CONC 26.3 g/dl (33.0-37.0); MEAN PLATELET VOLUME 9.3 fl (9.6-12.3); NUCLEATED RED BLOOD CELL 0.5 % (0.0-0.0); PLATELET COUNT AUTOMATED 284 10*3/uL (130-400); RED BLOOD COUNT 3.25 10*6/uL (4.10-5.10); RED CELL DISTRI WIDTH 20.6 % (0-14.5)
[2020-10-16 06:25] LABS: BUN 17 mg/dl (7-24); CHLORIDE 108 mmol/L (98-107); POTASSIUM 4.3 mmol/L (3.5-5.1); SODIUM 143 mmol/L (136-145)
[2020-10-16 06:51] LABS: BASOPHILS 1 % (0-1); PLATELET SUFFICIENCY NORMAL (NORMAL); POLYCHROMASIA MODERATE; TOTAL CELLS COUNTED 100 #CELLS
[2020-10-16 06:52] LABS: SCHISTOCYTES FEW
[2020-10-16 08:10] LABS: VITAMIN D, 25-HYDROXY 64.2 ng/mL (30-100)
[2020-10-16 12:57] LABS: BASO % 0.8 % (0.0-1.0); EOS # 0.1 10*3/uL (0.0-0.4); EOS % 1.6 % (1.0-4.0); HEMATOCRIT 26.8 % (37.0-47.0); LYMPH # 1.5 10*3/uL (1.3-4.4); LYMPH % 29.1 % (27.0-41.0); MEAN CELL VOLUME 72.6 fl (81.0-99.0); MEAN CORPUSCULAR HGB 19.2 pg (27.0-31.0); MEAN CORPUSCULAR HGB CONC 26.5 g/dl (33.0-37.0); MEAN PLATELET VOLUME 9.2 fl (9.6-12.3); MONO # 0.6 10*3/uL (0.1-1.0); MONO % 10.9 % (3.0-9.0); NEUT # 2.9 10*3/uL (2.3-7.9); NEUT % 57.2 % (47.0-73.0); NUCLEATED RED BLOOD CELL 0.6 % (0.0-0.0); PLATELET COUNT AUTOMATED 254 10*3/uL (130-400); RED BLOOD COUNT 3.69 10*6/uL (4.10-5.10); RED CELL DISTRI WIDTH 20.8 % (0-14.5); WHITE BLOOD COUNT 5.1 10*3/uL (4.8-10.8)
[2020-10-17] VITALS (11 sets, daily range): BP systolic 94–162; BP diastolic 49–71
[2020-10-17 06:18] LABS: HEMATOCRIT 24.9 % (37.0-47.0); MEAN CELL VOLUME 71.3 fl (81.0-99.0); MEAN CORPUSCULAR HGB 19.2 pg (27.0-31.0); MEAN CORPUSCULAR HGB CONC 26.9 g/dl (33.0-37.0); MEAN PLATELET VOLUME 9.5 fl (9.6-12.3); PLATELET COUNT AUTOMATED 254 10*3/uL (130-400); RED BLOOD COUNT 3.49 10*6/uL (4.10-5.10); RED CELL DISTRI WIDTH 21.2 % (0-14.5); WHITE BLOOD COUNT 4.3 10*3/uL (4.8-10.8)
[2020-10-17 06:43] LABS: BUN 11 mg/dl (7-24); CHLORIDE 110 mmol/L (98-107); CREATININE 0.78 mg/dL (0.55-1.02); POTASSIUM 3.7 mmol/L (3.5-5.1); SODIUM 144 mmol/L (136-145)
[2020-10-17 06:48] LABS: MICROCYTOSIS SLIGHT; PLATELET SUFFICIENCY NORMAL (NORMAL); SCHISTOCYTES FEW; TOTAL CELLS COUNTED 100 #CELLS
[2020-10-17 14:15] LABS: HEMATOCRIT 32.3 % (37.0-47.0); MEAN CELL VOLUME 71.3 fl (81.0-99.0); MEAN CORPUSCULAR HGB 20.1 pg (27.0-31.0); MEAN CORPUSCULAR HGB CONC 28.2 g/dl (33.0-37.0); PLATELET COUNT AUTOMATED 237 10*3/uL (130-400); RED BLOOD COUNT 4.53 10*6/uL (4.10-5.10); WHITE BLOOD COUNT 5.3 10*3/uL (4.8-10.8)
[2020-10-17 14:42] LABS: BASOPHILS 1 % (0-1); PLATELET SUFFICIENCY NORMAL (NORMAL); TOTAL CELLS COUNTED 100 #CELLS
[2020-10-17 14:47] LABS: MICROCYTOSIS MODERATE
[2020-10-17 14:48] LABS: POLYCHROMASIA SLIGHT
[2020-10-18] VITALS: BP 148/56
[2020-10-18 06:23] LABS: BASO % 0.4 % (0.0-1.0); EOS # 0.1 10*3/uL (0.0-0.4); EOS % 2.7 % (1.0-4.0); HEMATOCRIT 28.9 % (37.0-47.0); LYMPH # 1.7 10*3/uL (1.3-4.4); LYMPH % 36.9 % (27.0-41.0); MEAN CELL VOLUME 73.5 fl (81.0-99.0); MEAN CORPUSCULAR HGB 19.8 pg (27.0-31.0); MEAN PLATELET VOLUME 9.2 fl (9.6-12.3); MONO # 0.5 10*3/uL (0.1-1.0); MONO % 11.5 % (3.0-9.0); NEUT # 2.2 10*3/uL (2.3-7.9); NEUT % 48.5 % (47.0-73.0); NUCLEATED RED BLOOD CELL 0.4 % (0.0-0.0); PLATELET COUNT AUTOMATED 242 10*3/uL (130-400); RED BLOOD COUNT 3.93 10*6/uL (4.10-5.10); RED CELL DISTRI WIDTH 22.3 % (0-14.5); WHITE BLOOD COUNT 4.5 10*3/uL (4.8-10.8)
[2020-10-18 07:46] VITALS: BP 151/78
[2020-10-18 11:40] VITALS: BP 148/76
[2020-10-18 16:00] VITALS: BP 153/66
[2020-10-18 20:00] VITALS: BP 129/49
[2020-10-19] VITALS (9 sets, daily range): BP systolic 123–169; BP diastolic 44–88
[2020-10-19 06:00] LABS: BUN 12 mg/dl (7-24); CHLORIDE 106 mmol/L (98-107); CREATININE 0.95 mg/dL (0.55-1.02); POTASSIUM 3.8 mmol/L (3.5-5.1); SODIUM 141 mmol/L (136-145)
[2020-10-19 06:16] LABS: BASO % 0.5 % (0.0-1.0); EOS # 0.1 10*3/uL (0.0-0.4); EOS % 2.3 % (1.0-4.0); HEMATOCRIT 30.5 % (37.0-47.0); LYMPH # 1.9 10*3/uL (1.3-4.4); LYMPH % 34.1 % (27.0-41.0); MEAN CELL VOLUME 73.7 fl (81.0-99.0); MEAN CORPUSCULAR HGB CONC 27.2 g/dl (33.0-37.0); MEAN PLATELET VOLUME 9.3 fl (9.6-12.3); MONO # 0.7 10*3/uL (0.1-1.0); NEUT # 2.9 10*3/uL (2.3-7.9); NEUT % 50.7 % (47.0-73.0); NUCLEATED RED BLOOD CELL 0.4 % (0.0-0.0); PLATELET COUNT AUTOMATED 269 10*3/uL (130-400); RED BLOOD COUNT 4.14 10*6/uL (4.10-5.10); RED CELL DISTRI WIDTH 23.5 % (0-14.5); WHITE BLOOD COUNT 5.7 10*3/uL (4.8-10.8)
[2020-10-20] VITALS: BP 123/54
[2020-10-20 06:06] LABS: BUN 15 mg/dl (7-24); CHLORIDE 107 mmol/L (98-107); POTASSIUM 3.8 mmol/L (3.5-5.1); SODIUM 137 mmol/L (136-145)
[2020-10-20 06:18] LABS: BASO % 0.6 % (0.0-1.0); EOS # 0.1 10*3/uL (0.0-0.4); EOS % 1.7 % (1.0-4.0); HEMATOCRIT 30.7 % (37.0-47.0); LYMPH # 1.5 10*3/uL (1.3-4.4); LYMPH % 28.2 % (27.0-41.0); MEAN CELL VOLUME 74.9 fl (81.0-99.0); MEAN CORPUSCULAR HGB 19.8 pg (27.0-31.0); MEAN CORPUSCULAR HGB CONC 26.4 g/dl (33.0-37.0); MEAN PLATELET VOLUME 9.5 fl (9.6-12.3); MONO # 0.5 10*3/uL (0.1-1.0); MONO % 9.6 % (3.0-9.0); NEUT # 3.3 10*3/uL (2.3-7.9); NEUT % 59.7 % (47.0-73.0); NUCLEATED RED BLOOD CELL 0.4 % (0.0-0.0); PLATELET COUNT AUTOMATED 272 10*3/uL (130-400); RED CELL DISTRI WIDTH 23.7 % (0-14.5); WHITE BLOOD COUNT 5.4 10*3/uL (4.8-10.8)
[2020-10-20 07:38] VITALS: BP 122/68
[2020-10-20 11:45] VITALS: BP 149/51
[2020-10-20 16:00] VITALS: BP 125/60
[2020-10-20 20:00] VITALS: BP 124/49
[2020-10-20 23:47] VITALS: BP 152/63
[2020-10-21] VITALS (10 sets, daily range): BP systolic 132–159; BP diastolic 46–77
[2020-10-21 06:09] LABS: BUN 16 mg/dl (7-24); CHLORIDE 104 mmol/L (98-107); CREATININE 0.89 mg/dL (0.55-1.02); POTASSIUM 3.5 mmol/L (3.5-5.1); SODIUM 140 mmol/L (136-145)
[2020-10-21 06:12] LABS: BASO % 0.5 % (0.0-1.0); EOS # 0.1 10*3/uL (0.0-0.4); EOS % 2.4 % (1.0-4.0); HEMATOCRIT 31.7 % (37.0-47.0); LYMPH # 2.1 10*3/uL (1.3-4.4); LYMPH % 38.6 % (27.0-41.0); MEAN CELL VOLUME 73.7 fl (81.0-99.0); MEAN CORPUSCULAR HGB CONC 27.1 g/dl (33.0-37.0); MEAN PLATELET VOLUME 9.1 fl (9.6-12.3); MONO # 0.6 10*3/uL (0.1-1.0); NEUT # 2.7 10*3/uL (2.3-7.9); NEUT % 48.3 % (47.0-73.0); PLATELET COUNT AUTOMATED 272 10*3/uL (130-400); RED CELL DISTRI WIDTH 23.6 % (0-14.5); WHITE BLOOD COUNT 5.5 10*3/uL (4.8-10.8)
[2020-10-22] VITALS: BP 137/63
[2020-10-22 06:24] LABS: BASO % 0.2 % (0.0-1.0); HEMATOCRIT 29.3 % (37.0-47.0); LYMPH # 0.5 10*3/uL (1.3-4.4); LYMPH % 4.8 % (27.0-41.0); MEAN CELL VOLUME 74.6 fl (81.0-99.0); MEAN CORPUSCULAR HGB 20.1 pg (27.0-31.0); MEAN PLATELET VOLUME 9.3 fl (9.6-12.3); MONO # 0.6 10*3/uL (0.1-1.0); MONO % 5.5 % (3.0-9.0); PLATELET COUNT AUTOMATED 294 10*3/uL (130-400); RED BLOOD COUNT 3.93 10*6/uL (4.10-5.10); RED CELL DISTRI WIDTH 22.7 % (0-14.5); WHITE BLOOD COUNT 10.1 10*3/uL (4.8-10.8)
[2020-10-22 06:38] LABS: BUN 19 mg/dl (7-24); CHLORIDE 106 mmol/L (98-107); POTASSIUM 4.2 mmol/L (3.5-5.1); SODIUM 138 mmol/L (136-145)
[2020-10-22 08:00] VITALS: BP 134/66
[2020-10-22 12:00] VITALS: BP 130/50
[2020-10-22 16:00] VITALS: BP 133/48
[2020-10-22 20:00] VITALS: BP 133/52
[2020-10-23] VITALS (11 sets, daily range): BP systolic 110–145; BP diastolic 43–68
[2020-10-23 06:14] LABS: MEAN CELL VOLUME 77.1 fl (81.0-99.0); MEAN CORPUSCULAR HGB 19.7 pg (27.0-31.0); MEAN CORPUSCULAR HGB CONC 25.6 g/dl (33.0-37.0); MEAN PLATELET VOLUME 9.5 fl (9.6-12.3); PLATELET COUNT AUTOMATED 277 10*3/uL (130-400); RED CELL DISTRI WIDTH 22.8 % (0-14.5); WHITE BLOOD COUNT 7.8 10*3/uL (4.8-10.8)
[2020-10-23 07:06] LABS: TOTAL CELLS COUNTED 100 #CELLS
[2020-10-23 07:07] LABS: BURR CELLS FEW; MICROCYTOSIS SLIGHT; OVALOCYTES FEW; PLATELET SUFFICIENCY NORMAL (NORMAL); POLYCHROMASIA SLIGHT; SCHISTOCYTES FEW
[2020-10-23 19:13] LABS: BASO # 0.1 10*3/uL (0.0-0.1); BASO % 0.7 % (0.0-1.0); EOS # 0.1 10*3/uL (0.0-0.4); EOS % 1.7 % (1.0-4.0); HEMATOCRIT 32.9 % (37.0-47.0); LYMPH # 2.2 10*3/uL (1.3-4.4); LYMPH % 26.7 % (27.0-41.0); MEAN CELL VOLUME 76.9 fl (81.0-99.0); MEAN CORPUSCULAR HGB 21.7 pg (27.0-31.0); MEAN CORPUSCULAR HGB CONC 28.3 g/dl (33.0-37.0); MEAN PLATELET VOLUME 9.2 fl (9.6-12.3); MONO # 0.9 10*3/uL (0.1-1.0); MONO % 10.5 % (3.0-9.0); NEUT % 60.2 % (47.0-73.0); PLATELET COUNT AUTOMATED 285 10*3/uL (130-400); RED BLOOD COUNT 4.28 10*6/uL (4.10-5.10); WHITE BLOOD COUNT 8.3 10*3/uL (4.8-10.8)
[2020-10-24] VITALS: BP 129/48
[2020-10-24 06:33] LABS: BASO # 0.1 10*3/uL (0.0-0.1); BASO % 0.9 % (0.0-1.0); EOS # 0.1 10*3/uL (0.0-0.4); HEMATOCRIT 31.5 % (37.0-47.0); LYMPH # 2.5 10*3/uL (1.3-4.4); MEAN CELL VOLUME 77.4 fl (81.0-99.0); MEAN CORPUSCULAR HGB 22.1 pg (27.0-31.0); MEAN CORPUSCULAR HGB CONC 28.6 g/dl (33.0-37.0); MEAN PLATELET VOLUME 9.1 fl (9.6-12.3); MONO # 0.8 10*3/uL (0.1-1.0); MONO % 11.4 % (3.0-9.0); NEUT # 3.6 10*3/uL (2.3-7.9); NEUT % 50.4 % (47.0-73.0); PLATELET COUNT AUTOMATED 269 10*3/uL (130-400); RED BLOOD COUNT 4.07 10*6/uL (4.10-5.10); RED CELL DISTRI WIDTH 22.4 % (0-14.5)
[2020-10-24 08:00] VITALS: BP 143/68
[2020-10-24 12:00] VITALS: BP 136/74
[2020-10-24 16:00] VITALS: BP 139/61
[2020-10-24 20:00] VITALS: BP 138/57
[2020-10-25] VITALS: BP 137/51
[2020-10-25 06:13] LABS: BASO # 0.1 10*3/uL (0.0-0.1); BASO % 0.7 % (0.0-1.0); EOS # 0.2 10*3/uL (0.0-0.4); EOS % 3.2 % (1.0-4.0); HEMATOCRIT 33.1 % (37.0-47.0); LYMPH % 29.8 % (27.0-41.0); MEAN CELL VOLUME 76.8 fl (81.0-99.0); MEAN CORPUSCULAR HGB 21.6 pg (27.0-31.0); MEAN CORPUSCULAR HGB CONC 28.1 g/dl (33.0-37.0); MEAN PLATELET VOLUME 9.2 fl (9.6-12.3); MONO # 0.7 10*3/uL (0.1-1.0); NEUT # 3.8 10*3/uL (2.3-7.9); PLATELET COUNT AUTOMATED 307 10*3/uL (130-400); RED BLOOD COUNT 4.31 10*6/uL (4.10-5.10); WHITE BLOOD COUNT 6.8 10*3/uL (4.8-10.8)
[2020-10-25 08:00] VITALS: BP 158/88
[2020-10-25 12:00] VITALS: BP 141/60
[2020-11-22] MEDS ORDERED: SEPTDS PO ×2 (13:20)
== END 2020-10-25 14:50 | disposition home or self-care (01) | DRG 329 ==
LOC: ED 21:21 → EDHOLD 22:39 → 4E 22:39 → EDHOLD 23:08 → ICCU 23:21 → 4E 10-16 17:31
PROVIDERS: Hospitalist; Internal Medicine; Student in an Organized Health Care Education/Training Program; ADMIT Emergency Medicine; ATTEND Emergency Medicine
PROC: 30233N1 Transfusion of Nonautologous Red Blood Cells into Peripheral Vein, Percutaneous Approach (ICD-10-PCS; principal; 2020-10-15)
PROC: 0DJ08ZZ Inspection of Upper Intestinal Tract, Via Natural or Artificial Opening Endoscopic (ICD-10-PCS; 2020-10-17)
PROC: 0DBP8ZZ Excision of Rectum, Via Natural or Artificial Opening Endoscopic (ICD-10-PCS; 2020-10-19)
PROC: 0DBN8ZZ Excision of Sigmoid Colon, Via Natural or Artificial Opening Endoscopic (ICD-10-PCS; 2020-10-19)
PROC: 0DBF4ZZ Excision of Right Large Intestine, Percutaneous Endoscopic Approach (ICD-10-PCS; 2020-10-21)
PROC: 0WQF4ZZ Repair Abdominal Wall, Percutaneous Endoscopic Approach (ICD-10-PCS; 2020-10-21)
DX: C18.2 Malignant neoplasm of ascending colon (principal); N17.0 Acute kidney failure with tubular necrosis; D62 Acute posthemorrhagic anemia; K92.1 Melena; K63.5 Polyp of colon; D63.0 Anemia in neoplastic disease; D50.9 Iron deficiency anemia, unspecified; K21.9 Gastro-esophageal reflux disease without esophagitis; K62.1 Rectal polyp; E11.22 Type 2 diabetes mellitus with diabetic chronic kidney disease; Z96.653 Presence of artificial knee joint, bilateral; N18.31 Chronic kidney disease, stage 3a; E78.5 Hyperlipidemia, unspecified; E11.65 Type 2 diabetes mellitus with hyperglycemia; K57.90 Diverticulosis of intestine, part unspecified, without perforation or abscess without bleeding; Z82.49 Family history of ischemic heart disease and other diseases of the circulatory system; Z98.51 Tubal ligation status; Z90.49 Acquired absence of other specified parts of digestive tract; Z83.3 Family history of diabetes mellitus; Z80.1 Family history of malignant neoplasm of trachea, bronchus and lung; K29.70 Gastritis, unspecified, without bleeding; Z79.899 Other long term (current) drug therapy; Z79.82 Long term (current) use of aspirin; Z79.84 Long term (current) use of oral hypoglycemic drugs

== ENCOUNTER → 2020-11-10 | Outpatient (CLI) | payer MEDICARE ==
[~2020-11-10] MED LIST changes: +APRESOLINE10 MG PO; +AUGMENTIN 875-875 MG PO; +IRON325 M1 PO; +LOPRESSOR50 M1 PO; +METOPROLOL TART50 M1 PO; +POTASSIUM CHLO20 ME3 PO; +SEPTDS PO; +VERAPAMIL SR240 M1 PO; +VITAMIN D3125 MCG PO
[2020-11-10 09:55] LABS: BASO % 0.7 % (0.0-1.0); EOS # 0.2 10*3/uL (0.0-0.4); EOS % 2.4 % (1.0-4.0); HEMATOCRIT 34.8 % (37.0-47.0); LYMPH # 1.6 10*3/uL (1.3-4.4); LYMPH % 25.6 % (27.0-41.0); MEAN CELL VOLUME 79.1 fl (81.0-99.0); MEAN CORPUSCULAR HGB CONC 27.9 g/dl (33.0-37.0); MEAN PLATELET VOLUME 8.7 fl (9.6-12.3); MONO # 0.5 10*3/uL (0.1-1.0); MONO % 8.6 % (3.0-9.0); NEUT # 3.8 10*3/uL (2.3-7.9); NEUT % 62.2 % (47.0-73.0); PLATELET COUNT AUTOMATED 345 10*3/uL (130-400); RED CELL DISTRI WIDTH 23.1 % (0-14.5); WHITE BLOOD COUNT 6.1 10*3/uL (4.8-10.8)
[2020-11-10 10:13] LABS: ALBUMIN 2.9 gm/dl (3.1-4.5); ALKALINE PHOSPHATASE 82 U/L (45-117); BUN 18 mg/dl (7-24); CHLORIDE 105 mmol/L (98-107); CHOLESTEROL 118 mg/dL (<200); CREATININE 0.87 mg/dL (0.55-1.02); HDL CHOLESTEROL 45 mg/dl (40-60); IRON 25 ug/dL (50-170); LDL CHOLESTEROL 43 mg/dL (9-159); SGOT/AST 7 IU/L (3-35); SGPT/ALT 12 U/L (12-78); SODIUM 140 mmol/L (136-145); TOTAL PROTEIN 7.1 gm/dL (6.4-8.2); TRIGLYCERIDES 150 mg/dl (<150); VLDL CHOLESTEROL 30 mg/dL (6-40)
== END | disposition home or self-care (01) ==
LOC: LAB 09:22
PROVIDERS: ATTEND Internal Medicine
DX: E11.9 Type 2 diabetes mellitus without complications (principal); D64.9 Anemia, unspecified

== ENCOUNTER 2020-11-23 10:18 | Inpatient (IN) | payer MEDICARE ==
[~2020-11-23] VITALS: Ht 167.6 cm; Wt 105.0 kg
[~2020-11-23 10:18] MED LIST changes: -APRESOLINE10 MG PO; -AUGMENTIN 875-875 MG PO; -IRON325 M1 PO; -LOPRESSOR50 M1 PO; -VERAPAMIL SR240 M1 PO; -VITAMIN D3125 MCG PO
[2020-11-23 10:45] VITALS: BP 151/66
[2020-11-23] MEDS ORDERED: VERAPAMIL SR240 M1 PO (11:48)
[2020-11-23] MEDS ORDERED: LOPRESSOR50 M1 PO (11:50)
[2020-11-23] MEDS ORDERED: APRESOLINE10 MG PO (11:50)
[2020-11-23] MEDS ORDERED: VITAMIN D3125 MCG PO (11:51)
[2020-11-23] MEDS ORDERED: IRON325 M1 PO (11:52)
[2020-11-23 12:26] VITALS: BP 151/66
[2020-11-23 16:24] VITALS: BP 151/65
[2020-11-23 20:00] VITALS: BP 174/67
[2020-11-24] VITALS: BP 153/59
[2020-11-24 06:37] LABS: BASO % 0.3 % (0.0-1.0); EOS # 0.2 10*3/uL (0.0-0.4); EOS % 2.9 % (1.0-4.0); HEMATOCRIT 30.1 % (37.0-47.0); LYMPH # 1.8 10*3/uL (1.3-4.4); LYMPH % 27.6 % (27.0-41.0); MEAN CELL VOLUME 77.8 fl (81.0-99.0); MEAN CORPUSCULAR HGB 22.5 pg (27.0-31.0); MEAN CORPUSCULAR HGB CONC 28.9 g/dl (33.0-37.0); MONO # 0.7 10*3/uL (0.1-1.0); MONO % 10.1 % (3.0-9.0); NEUT # 3.8 10*3/uL (2.3-7.9); NEUT % 58.6 % (47.0-73.0); PLATELET COUNT AUTOMATED 346 10*3/uL (130-400); RED BLOOD COUNT 3.87 10*6/uL (4.10-5.10); RED CELL DISTRI WIDTH 21.8 % (0-14.5); WHITE BLOOD COUNT 6.5 10*3/uL (4.8-10.8)
[2020-11-24 06:49] LABS: BUN 12 mg/dl (7-24); CHLORIDE 103 mmol/L (98-107); CREATININE 0.84 mg/dL (0.55-1.02); POTASSIUM 3.9 mmol/L (3.5-5.1); SODIUM 141 mmol/L (136-145)
[2020-11-24 08:38] VITALS: BP 158/68
[2020-11-24 12:12] VITALS: BP 164/75
[2020-11-24 16:25] VITALS: BP 135/52
[2020-11-24 20:00] VITALS: BP 128/49
[2020-11-25] VITALS: BP 140/48
[2020-11-25 06:26] LABS: BASO % 0.4 % (0.0-1.0); EOS # 0.2 10*3/uL (0.0-0.4); EOS % 3.6 % (1.0-4.0); HEMATOCRIT 33.1 % (37.0-47.0); LYMPH # 1.8 10*3/uL (1.3-4.4); LYMPH % 38.2 % (27.0-41.0); MEAN CELL VOLUME 78.8 fl (81.0-99.0); MEAN CORPUSCULAR HGB 22.4 pg (27.0-31.0); MEAN CORPUSCULAR HGB CONC 28.4 g/dl (33.0-37.0); MEAN PLATELET VOLUME 8.3 fl (9.6-12.3); MONO # 0.6 10*3/uL (0.1-1.0); MONO % 11.8 % (3.0-9.0); NEUT # 2.2 10*3/uL (2.3-7.9); NEUT % 45.6 % (47.0-73.0); PLATELET COUNT AUTOMATED 339 10*3/uL (130-400); RED CELL DISTRI WIDTH 21.6 % (0-14.5); WHITE BLOOD COUNT 4.8 10*3/uL (4.8-10.8)
[2020-11-25 06:44] LABS: BUN 14 mg/dl (7-24); CHLORIDE 106 mmol/L (98-107); POTASSIUM 4.4 mmol/L (3.5-5.1); SODIUM 138 mmol/L (136-145)
[2020-11-25 08:00] VITALS: BP 162/60
[2020-11-25 12:00] VITALS: BP 170/78
[2020-11-25 16:00] VITALS: BP 162/52
[2020-11-25 20:00] VITALS: BP 161/65
[2020-11-26] VITALS: BP 147/53
[2020-11-26 06:41] LABS: BASO % 0.4 % (0.0-1.0); EOS # 0.2 10*3/uL (0.0-0.4); EOS % 3.4 % (1.0-4.0); HEMATOCRIT 32.1 % (37.0-47.0); LYMPH # 1.7 10*3/uL (1.3-4.4); LYMPH % 36.4 % (27.0-41.0); MEAN CELL VOLUME 78.3 fl (81.0-99.0); MEAN CORPUSCULAR HGB 22.2 pg (27.0-31.0); MEAN CORPUSCULAR HGB CONC 28.3 g/dl (33.0-37.0); MONO # 0.5 10*3/uL (0.1-1.0); MONO % 9.7 % (3.0-9.0); NEUT # 2.3 10*3/uL (2.3-7.9); NEUT % 49.9 % (47.0-73.0); PLATELET COUNT AUTOMATED 312 10*3/uL (130-400); RED CELL DISTRI WIDTH 21.6 % (0-14.5); WHITE BLOOD COUNT 4.6 10*3/uL (4.8-10.8)
[2020-11-26 06:57] LABS: BUN 14 mg/dl (7-24); CHLORIDE 106 mmol/L (98-107); CREATININE 0.85 mg/dL (0.55-1.02); POTASSIUM 3.5 mmol/L (3.5-5.1); SODIUM 140 mmol/L (136-145)
[2020-11-26 08:00] VITALS: BP 144/45
[2020-11-26 12:00] VITALS: BP 152/48
[2020-11-26] MEDS ORDERED: AUGMENTIN 875-875 MG PO (13:10)
== END 2020-11-26 14:05 | disposition home or self-care (01) | DRG 580 ==
LOC: 5E 10:18
PROVIDERS: Student in an Organized Health Care Education/Training Program; ADMIT Internal Medicine; ATTEND Internal Medicine
PROC: 0JD80ZZ Extraction of Abdomen Subcutaneous Tissue and Fascia, Open Approach (ICD-10-PCS; principal; 2020-11-24)
DX: L03.311 Cellulitis of abdominal wall (principal); T81.30XA Disruption of wound, unspecified, initial encounter; C18.2 Malignant neoplasm of ascending colon; I50.32 Chronic diastolic (congestive) heart failure; Z68.41 Body mass index [BMI] 40.0-44.9, adult; D50.9 Iron deficiency anemia, unspecified; K21.9 Gastro-esophageal reflux disease without esophagitis; E11.65 Type 2 diabetes mellitus with hyperglycemia; M19.90 Unspecified osteoarthritis, unspecified site; E78.5 Hyperlipidemia, unspecified; E11.40 Type 2 diabetes mellitus with diabetic neuropathy, unspecified; E78.1 Pure hyperglyceridemia; E66.01 Morbid (severe) obesity due to excess calories; I11.0 Hypertensive heart disease with heart failure; Z96.653 Presence of artificial knee joint, bilateral; E87.5 Hyperkalemia; Z98.890 Other specified postprocedural states; Z85.038 Personal history of other malignant neoplasm of large intestine; Z98.49 Cataract extraction status, unspecified eye; Z98.51 Tubal ligation status; Z83.3 Family history of diabetes mellitus; Z80.1 Family history of malignant neoplasm of trachea, bronchus and lung; Z90.49 Acquired absence of other specified parts of digestive tract; Z82.49 Family history of ischemic heart disease and other diseases of the circulatory system; Z79.4 Long term (current) use of insulin; Y83.8 Other surgical procedures as the cause of abnormal reaction of the patient, or of later complication, without mention of misadventure at the time of the procedure; Y92.89 Other specified places as the place of occurrence of the external cause

== ENCOUNTER → 2020-12-01 | Outpatient (CLI) | payer MEDICARE ==
[~2020-12-01] MED LIST changes: +APRESOLINE10 MG PO; +AUGMENTIN 875-875 MG PO; +IRON325 M1 PO; +LOPRESSOR50 M1 PO; +VERAPAMIL SR240 M1 PO; +VITAMIN D3125 MCG PO
== END ==
LOC: WOUNDCARE 09:00
PROVIDERS: ATTEND Nurse Practitioner
DX: T81.89XA Other complications of procedures, not elsewhere classified, initial encounter (principal); S31.109A Unspecified open wound of abdominal wall, unspecified quadrant without penetration into peritoneal cavity, initial encounter; L03.319 Cellulitis of trunk, unspecified; A49.01 Methicillin susceptible Staphylococcus aureus infection, unspecified site; E11.40 Type 2 diabetes mellitus with diabetic neuropathy, unspecified; I11.0 Hypertensive heart disease with heart failure; I50.9 Heart failure, unspecified; E78.5 Hyperlipidemia, unspecified; E78.2 Mixed hyperlipidemia; E66.9 Obesity, unspecified; M19.90 Unspecified osteoarthritis, unspecified site; K21.9 Gastro-esophageal reflux disease without esophagitis; Z85.038 Personal history of other malignant neoplasm of large intestine; Z98.49 Cataract extraction status, unspecified eye; Z96.653 Presence of artificial knee joint, bilateral; Z95.9 Presence of cardiac and vascular implant and graft, unspecified; Z90.49 Acquired absence of other specified parts of digestive tract; Z79.82 Long term (current) use of aspirin; Z79.84 Long term (current) use of oral hypoglycemic drugs; Z79.899 Other long term (current) drug therapy; Z98.890 Other specified postprocedural states; X58.XXXA Exposure to other specified factors, initial encounter; Y93.89 Activity, other specified; Y92.89 Other specified places as the place of occurrence of the external cause; Y99.8 Other external cause status

== ENCOUNTER → 2020-12-07 | Outpatient (CLI) | payer MEDICARE | LOC: WOUNDCARE 03:45 | PROVIDERS: ATTEND Nurse Practitioner | DX: T81.89XD Other complications of procedures, not elsewhere classified, subsequent encounter (principal); S31.109D Unspecified open wound of abdominal wall, unspecified quadrant without penetration into peritoneal cavity, subsequent encounter; L03.319 Cellulitis of trunk, unspecified; A49.01 Methicillin susceptible Staphylococcus aureus infection, unspecified site; E11.40 Type 2 diabetes mellitus with diabetic neuropathy, unspecified; I11.0 Hypertensive heart disease with heart failure; I50.9 Heart failure, unspecified; E78.5 Hyperlipidemia, unspecified; E78.2 Mixed hyperlipidemia; E66.9 Obesity, unspecified; M19.90 Unspecified osteoarthritis, unspecified site; K21.9 Gastro-esophageal reflux disease without esophagitis; Z85.038 Personal history of other malignant neoplasm of large intestine; Z98.49 Cataract extraction status, unspecified eye; Z96.653 Presence of artificial knee joint, bilateral; Z95.9 Presence of cardiac and vascular implant and graft, unspecified; Z90.49 Acquired absence of other specified parts of digestive tract; Z79.82 Long term (current) use of aspirin; Z79.84 Long term (current) use of oral hypoglycemic drugs; Z79.899 Other long term (current) drug therapy; Z98.890 Other specified postprocedural states; X58.XXXD Exposure to other specified factors, subsequent encounter; Y83.8 Other surgical procedures as the cause of abnormal reaction of the patient, or of later complication, without mention of misadventure at the time of the procedure ==

== ENCOUNTER → 2020-12-14 | Outpatient (CLI) | payer MEDICARE | LOC: WOUNDCARE 01:00 | PROVIDERS: ATTEND Nurse Practitioner | DX: T81.89XD Other complications of procedures, not elsewhere classified, subsequent encounter (principal); S31.109D Unspecified open wound of abdominal wall, unspecified quadrant without penetration into peritoneal cavity, subsequent encounter; L03.319 Cellulitis of trunk, unspecified; A49.01 Methicillin susceptible Staphylococcus aureus infection, unspecified site; E11.40 Type 2 diabetes mellitus with diabetic neuropathy, unspecified; I11.0 Hypertensive heart disease with heart failure; I50.9 Heart failure, unspecified; E78.5 Hyperlipidemia, unspecified; E78.2 Mixed hyperlipidemia; E66.9 Obesity, unspecified; M19.90 Unspecified osteoarthritis, unspecified site; K21.9 Gastro-esophageal reflux disease without esophagitis; Z85.038 Personal history of other malignant neoplasm of large intestine; Z98.49 Cataract extraction status, unspecified eye; Z96.653 Presence of artificial knee joint, bilateral; Z95.9 Presence of cardiac and vascular implant and graft, unspecified; Z90.49 Acquired absence of other specified parts of digestive tract; Z79.82 Long term (current) use of aspirin; Z79.84 Long term (current) use of oral hypoglycemic drugs; Z79.899 Other long term (current) drug therapy; Z98.890 Other specified postprocedural states; X58.XXXD Exposure to other specified factors, subsequent encounter; Y83.8 Other surgical procedures as the cause of abnormal reaction of the patient, or of later complication, without mention of misadventure at the time of the procedure ==

== ENCOUNTER → 2020-12-21 | Outpatient (CLI) | payer MEDICARE | LOC: WOUNDCARE 01:20 | PROVIDERS: ATTEND Nurse Practitioner | DX: T81.89XD Other complications of procedures, not elsewhere classified, subsequent encounter (principal); S31.109D Unspecified open wound of abdominal wall, unspecified quadrant without penetration into peritoneal cavity, subsequent encounter; L03.319 Cellulitis of trunk, unspecified; A49.01 Methicillin susceptible Staphylococcus aureus infection, unspecified site; E11.40 Type 2 diabetes mellitus with diabetic neuropathy, unspecified; I11.0 Hypertensive heart disease with heart failure; I50.9 Heart failure, unspecified; E78.5 Hyperlipidemia, unspecified; E78.2 Mixed hyperlipidemia; E66.9 Obesity, unspecified; M19.90 Unspecified osteoarthritis, unspecified site; K21.9 Gastro-esophageal reflux disease without esophagitis; Z85.038 Personal history of other malignant neoplasm of large intestine; Z98.49 Cataract extraction status, unspecified eye; Z96.653 Presence of artificial knee joint, bilateral; Z95.9 Presence of cardiac and vascular implant and graft, unspecified; Z90.49 Acquired absence of other specified parts of digestive tract; Z79.82 Long term (current) use of aspirin; Z79.84 Long term (current) use of oral hypoglycemic drugs; Z79.899 Other long term (current) drug therapy; Z98.890 Other specified postprocedural states; X58.XXXD Exposure to other specified factors, subsequent encounter; Y83.8 Other surgical procedures as the cause of abnormal reaction of the patient, or of later complication, without mention of misadventure at the time of the procedure ==

== ENCOUNTER → 2020-12-28 | Outpatient (CLI) | payer MEDICARE | LOC: WOUNDCARE 00:56 | PROVIDERS: ATTEND Surgery | DX: T81.89XD Other complications of procedures, not elsewhere classified, subsequent encounter (principal); S31.103D Unspecified open wound of abdominal wall, right lower quadrant without penetration into peritoneal cavity, subsequent encounter; L03.319 Cellulitis of trunk, unspecified; A49.01 Methicillin susceptible Staphylococcus aureus infection, unspecified site; E11.40 Type 2 diabetes mellitus with diabetic neuropathy, unspecified; I11.0 Hypertensive heart disease with heart failure; I50.9 Heart failure, unspecified; E78.5 Hyperlipidemia, unspecified; E78.2 Mixed hyperlipidemia; E66.9 Obesity, unspecified; M19.90 Unspecified osteoarthritis, unspecified site; K21.9 Gastro-esophageal reflux disease without esophagitis; Z85.038 Personal history of other malignant neoplasm of large intestine; Z98.49 Cataract extraction status, unspecified eye; Z96.653 Presence of artificial knee joint, bilateral; Z95.9 Presence of cardiac and vascular implant and graft, unspecified; Z90.49 Acquired absence of other specified parts of digestive tract; Z79.82 Long term (current) use of aspirin; Z79.84 Long term (current) use of oral hypoglycemic drugs; Z79.899 Other long term (current) drug therapy; Z98.890 Other specified postprocedural states; Z68.38 Body mass index [BMI] 38.0-38.9, adult; X58.XXXD Exposure to other specified factors, subsequent encounter; Y83.8 Other surgical procedures as the cause of abnormal reaction of the patient, or of later complication, without mention of misadventure at the time of the procedure ==

== ENCOUNTER → 2021-01-04 | Outpatient (CLI) | payer MEDICARE | LOC: WOUNDCARE 01:04 | PROVIDERS: ATTEND Nurse Practitioner | DX: T81.89XD Other complications of procedures, not elsewhere classified, subsequent encounter (principal); S31.103D Unspecified open wound of abdominal wall, right lower quadrant without penetration into peritoneal cavity, subsequent encounter; L03.319 Cellulitis of trunk, unspecified; A49.01 Methicillin susceptible Staphylococcus aureus infection, unspecified site; E11.40 Type 2 diabetes mellitus with diabetic neuropathy, unspecified; I11.0 Hypertensive heart disease with heart failure; I50.9 Heart failure, unspecified; E78.5 Hyperlipidemia, unspecified; E78.2 Mixed hyperlipidemia; E66.01 Morbid (severe) obesity due to excess calories; M19.90 Unspecified osteoarthritis, unspecified site; K21.9 Gastro-esophageal reflux disease without esophagitis; Z85.038 Personal history of other malignant neoplasm of large intestine; Z68.38 Body mass index [BMI] 38.0-38.9, adult; X58.XXXD Exposure to other specified factors, subsequent encounter; Y83.8 Other surgical procedures as the cause of abnormal reaction of the patient, or of later complication, without mention of misadventure at the time of the procedure ==

== ENCOUNTER → 2021-01-18 | Outpatient (CLI) | payer MEDICARE | LOC: WOUNDCARE 01:24 | PROVIDERS: ATTEND Surgery | DX: T81.89XD Other complications of procedures, not elsewhere classified, subsequent encounter (principal); S31.103D Unspecified open wound of abdominal wall, right lower quadrant without penetration into peritoneal cavity, subsequent encounter; L03.319 Cellulitis of trunk, unspecified; A49.01 Methicillin susceptible Staphylococcus aureus infection, unspecified site; E11.40 Type 2 diabetes mellitus with diabetic neuropathy, unspecified; I11.0 Hypertensive heart disease with heart failure; I50.9 Heart failure, unspecified; E78.5 Hyperlipidemia, unspecified; E78.2 Mixed hyperlipidemia; E66.01 Morbid (severe) obesity due to excess calories; M19.90 Unspecified osteoarthritis, unspecified site; K21.9 Gastro-esophageal reflux disease without esophagitis; Z85.038 Personal history of other malignant neoplasm of large intestine; Z68.38 Body mass index [BMI] 38.0-38.9, adult; X58.XXXD Exposure to other specified factors, subsequent encounter; Y83.8 Other surgical procedures as the cause of abnormal reaction of the patient, or of later complication, without mention of misadventure at the time of the procedure ==

== ENCOUNTER → 2021-01-25 | Outpatient (CLI) | payer MEDICARE | LOC: WOUNDCARE 03:05 | PROVIDERS: ATTEND Nurse Practitioner | DX: T81.89XD Other complications of procedures, not elsewhere classified, subsequent encounter (principal); S31.103D Unspecified open wound of abdominal wall, right lower quadrant without penetration into peritoneal cavity, subsequent encounter; L03.319 Cellulitis of trunk, unspecified; A49.01 Methicillin susceptible Staphylococcus aureus infection, unspecified site; E11.40 Type 2 diabetes mellitus with diabetic neuropathy, unspecified; I11.0 Hypertensive heart disease with heart failure; I50.9 Heart failure, unspecified; E78.5 Hyperlipidemia, unspecified; E78.2 Mixed hyperlipidemia; E66.01 Morbid (severe) obesity due to excess calories; M19.90 Unspecified osteoarthritis, unspecified site; K21.9 Gastro-esophageal reflux disease without esophagitis; Z85.038 Personal history of other malignant neoplasm of large intestine; Z68.38 Body mass index [BMI] 38.0-38.9, adult; X58.XXXD Exposure to other specified factors, subsequent encounter; Y83.8 Other surgical procedures as the cause of abnormal reaction of the patient, or of later complication, without mention of misadventure at the time of the procedure ==

== ENCOUNTER → 2021-02-01 | Outpatient (CLI) | payer MEDICARE | LOC: WOUNDCARE 01:19 | PROVIDERS: ATTEND Nurse Practitioner | DX: T81.89XD Other complications of procedures, not elsewhere classified, subsequent encounter (principal); S31.103D Unspecified open wound of abdominal wall, right lower quadrant without penetration into peritoneal cavity, subsequent encounter; L03.319 Cellulitis of trunk, unspecified; A49.01 Methicillin susceptible Staphylococcus aureus infection, unspecified site; E11.40 Type 2 diabetes mellitus with diabetic neuropathy, unspecified; I11.0 Hypertensive heart disease with heart failure; I50.9 Heart failure, unspecified; E78.5 Hyperlipidemia, unspecified; E78.2 Mixed hyperlipidemia; E66.01 Morbid (severe) obesity due to excess calories; M19.90 Unspecified osteoarthritis, unspecified site; K21.9 Gastro-esophageal reflux disease without esophagitis; Z85.038 Personal history of other malignant neoplasm of large intestine; Z68.38 Body mass index [BMI] 38.0-38.9, adult; X58.XXXD Exposure to other specified factors, subsequent encounter; Y83.8 Other surgical procedures as the cause of abnormal reaction of the patient, or of later complication, without mention of misadventure at the time of the procedure ==

== ENCOUNTER → 2022-06-06 | Outpatient (CLI) | payer MEDICARE | END | disposition home or self-care (01) | LOC: RAD 14:29 | PROVIDERS: ATTEND Internal Medicine | DX: M51.36 Other intervertebral disc degeneration, lumbar region (principal); M16.11 Unilateral primary osteoarthritis, right hip; M25.751 Osteophyte, right hip; M85.851 Other specified disorders of bone density and structure, right thigh; M48.061 Spinal stenosis, lumbar region without neurogenic claudication; I70.8 Atherosclerosis of other arteries ==

== ENCOUNTER → 2022-10-09 | Outpatient (CLI) | payer OTHER ==
[2022-10-09 16:14] LABS: BASO % 0.3 % (0.0-1.0); EOS # 0.1 10*3/uL (0.0-0.4); EOS % 0.7 % (1.0-4.0); HEMATOCRIT 43.4 % (37.0-47.0); LYMPH # 1.4 10*3/uL (1.3-4.4); LYMPH % 21.2 % (27.0-41.0); MEAN CELL VOLUME 89.1 fl (81.0-99.0); MEAN CORPUSCULAR HGB 28.5 pg (27.0-31.0); MEAN PLATELET VOLUME 8.4 fl (9.6-12.3); MONO # 0.5 10*3/uL (0.1-1.0); MONO % 7.4 % (3.0-9.0); NEUT # 4.7 10*3/uL (2.3-7.9); NEUT % 70.1 % (47.0-73.0); PLATELET COUNT AUTOMATED 205 10*3/uL (130-400); RED BLOOD COUNT 4.87 10*6/uL (4.10-5.10); RED CELL DISTRI WIDTH 12.6 % (0-14.5); WHITE BLOOD COUNT 6.8 10*3/uL (4.8-10.8)
== END ==
LOC: LAB 15:50
PROVIDERS: ATTEND Orthopaedic Surgery
DX: M25.561 Pain in right knee (principal); R53.83 Other fatigue

== ENCOUNTER 2022-12-18 19:25 | Emergency (ER) | payer OTHER ==
[~2022-12-18] VITALS: Ht 167.6 cm; Wt 108.9 kg
[2022-12-18 19:32] VITALS: BP 192/67
== END 2022-12-18 20:30 | disposition home or self-care (01) ==
LOC: ED 19:25
DX: S61.012A Laceration without foreign body of left thumb without damage to nail, initial encounter (principal); Z98.51 Tubal ligation status; Z90.49 Acquired absence of other specified parts of digestive tract; Z98.890 Other specified postprocedural states; Z79.899 Other long term (current) drug therapy; Z79.82 Long term (current) use of aspirin; W26.0XXA Contact with knife, initial encounter; Y93.89 Activity, other specified; Y92.89 Other specified places as the place of occurrence of the external cause; Y99.8 Other external cause status

== ENCOUNTER 2024-04-26 18:00 | Inpatient (IN) | payer OTHER ==
[~2024-04-26] VITALS: Ht 167.6 cm; Wt 108.9 kg
[2024-04-26 18:09] VITALS: BP 145/65
[2024-04-26 18:26] LABS: BASO % 0.5 % (0.0-1.0); EOS # 0.1 10*3/uL (0.0-0.4); EOS % 2.3 % (1.0-4.0); HEMATOCRIT 37.3 % (37.0-47.0); LYMPH # 1.8 10*3/uL (1.3-4.4); LYMPH % 42.5 % (27.0-41.0); MEAN CELL VOLUME 96.6 fl (81.0-99.0); MEAN CORPUSCULAR HGB 30.3 pg (27.0-31.0); MEAN CORPUSCULAR HGB CONC 31.4 g/dl (33.0-37.0); MONO # 0.4 10*3/uL (0.1-1.0); NEUT % 45.5 % (47.0-73.0); PLATELET COUNT AUTOMATED 159 10*3/uL (130-400); RED BLOOD COUNT 3.86 10*6/uL (4.10-5.10); RED CELL DISTRI WIDTH 13.2 % (0-14.5); WHITE BLOOD COUNT 4.3 10*3/uL (4.8-10.8)
[2024-04-26 18:41] LABS: POTASSIUM 4.5 mmol/L (3.4-5.1)
[2024-04-26 19:27] LABS: BILIRUBIN Negative (Negative); BLOOD Trace-Intact (Negative); CLARITY Clear (Clear); COLOR Yellow (Yellow); GLUCOSE Negative (Negative); KETONE Negative (Negative); LEUKO ESTERASE Trace (Negative); NITRITE Negative (Negative)
[2024-04-26 19:30] LABS: PH 8.5 (4.5-8.0)
[2024-04-26 19:39] LABS: BACTERIA 1+; EPITHELIAL CELLS 0-2
[2024-04-26] MEDS ORDERED: Ceftriaxone Sodium 1 GM/10 ML SYR IV ONE ×2 (19:50→20:55)
[2024-04-26] MEDS ORDERED: ACETAMINOPHEN 650 MG SUPP R PRN (20:50)
[2024-04-26] MEDS ORDERED: BISACODYL 5 MG TAB PO PRN (20:50)
[2024-04-26] MEDS ORDERED: BISACODYL 10 MG SUPP R PRN (20:50)
[2024-04-26] MEDS ORDERED: TEMAZEPAM 15 MG CAP PO PRN (20:50)
[2024-04-26] MEDS ORDERED: ACETAMINOPHEN 325 MG TAB PO PRN (20:50)
[2024-04-26] MEDS ORDERED: Ondansetron Hydrochloride 4 MG/2 ML VIAL IV PRN (20:50)
[2024-04-26] MEDS ORDERED: Magnesium Hydroxide 30 ML UDC PO PRN (20:50)
[2024-04-26] MEDS ORDERED: DEXTROSE 10 % IN WATER 250 ML IV PRN (20:50)
[2024-04-26] MEDS ORDERED: MORPHINE Sulfate 2 MG/ML SYR IV PRN (20:50)
[2024-04-26] MEDS ORDERED: Acetaminophen/Hydrocodone 5 MG/325 MG TABLET PO PRN (20:50)
[2024-04-26] MEDS ORDERED: SODIUM CHLORIDE 0.9% 1,000 ML IV ONE (20:55)
[2024-04-26 21:46] VITALS: BP 154/73
[2024-04-26] MEDS ORDERED: GABAPENTIN600 MG PO (21:53)
[2024-04-26] MEDS ORDERED: POTASSIUM CHLO20 ME4 PO (21:53)
[2024-04-26] MEDS ORDERED: INSULIN LISPRO 1 UNIT/0.01 ML SQ SCH (22:00)
[2024-04-27 03:01] VITALS: BP 175/66
[2024-04-27 05:10] LABS: FREE T4 1.05 ng/dl (0.89-1.76); POTASSIUM 4.2 mmol/L (3.4-5.1); TOTAL PROTEIN 6.4 gm/dL (6.0-8.0)
[2024-04-27] MEDS ORDERED: Pantoprazole Sodium 40 MG TAB PO SCH (06:00)
[2024-04-27 06:10] LABS: BASO % 0.6 % (0.0-1.0); EOS # 0.1 10*3/uL (0.0-0.4); EOS % 1.7 % (1.0-4.0); HEMATOCRIT 34.7 % (37.0-47.0); LYMPH # 2.5 10*3/uL (1.3-4.4); MEAN CELL VOLUME 96.9 fl (81.0-99.0); MEAN CORPUSCULAR HGB 30.4 pg (27.0-31.0); MEAN CORPUSCULAR HGB CONC 31.4 g/dl (33.0-37.0); MEAN PLATELET VOLUME 8.5 fl (9.6-12.3); MONO # 0.5 10*3/uL (0.1-1.0); MONO % 9.5 % (3.0-9.0); NEUT # 2.1 10*3/uL (2.3-7.9); PLATELET COUNT AUTOMATED 148 10*3/uL (130-400); RED BLOOD COUNT 3.58 10*6/uL (4.10-5.10); RED CELL DISTRI WIDTH 13.2 % (0-14.5); WHITE BLOOD COUNT 5.2 10*3/uL (4.8-10.8)
[2024-04-27 06:16] LABS: ACT PARTIAL THROMBO TIME 25.4 SECONDS (20.0-32.1)
[2024-04-27 06:17] VITALS: BP 186/74
[2024-04-27 06:57] LABS: VITAMIN D, 25-HYDROXY 74.3 ng/mL (30-100)
[2024-04-27] MEDS ORDERED: hydrALAZINE hydrochloride 10 MG TAB PO ONE (07:35)
[2024-04-27 07:44] VITALS: BP 166/58
[2024-04-27] MEDS ORDERED: SODIUM CHLORIDE 0.9% 1,000 ML IV ONE (08:55)
[2024-04-27] MEDS ORDERED: Enoxaparin Sodium 40 MG/0.4 ML SYR SC SCH (10:00)
[2024-04-27] MEDS ORDERED: ATORVASTATIN CALCIUM 10 MG TAB PO SCH (12:05)
[2024-04-27] MEDS ORDERED: Cholecalciferol 5,000 IU CAP (125 MCG) PO SCH (12:05)
[2024-04-27] MEDS ORDERED: CITALOPRAM 20 MG TAB PO SCH (12:05)
[2024-04-27] MEDS ORDERED: VERAPAMIL ER 240 MG TAB PO SCH (12:05)
[2024-04-27] MEDS ORDERED: ASPIRIN, CHEWABLE 81 MG TAB PO SCH (12:05)
[2024-04-27 17:19] VITALS: BP 156/72
[2024-04-27 20:00] VITALS: BP 169/75
[2024-04-27] MEDS ORDERED: Ceftriaxone Sodium 1 GM,IV 1 EA in SYRINGE INFUSION 10 ML IV SCH (20:00)
[2024-04-27] MEDS ORDERED: Ceftriaxone Sodium 2 GM in SYRINGE INFUSION 20 ML IV SCH (20:00)
[2024-04-27] MEDS ORDERED: GABAPENTIN 600 MG TAB PO SCH (22:00)
[2024-04-27] MEDS ORDERED: hydrALAZINE hydrochloride 10 MG TAB PO SCH (22:00)
[2024-04-27] MEDS ORDERED: Metoprolol Tartrate 50 MG TAB PO SCH (22:00)
[2024-04-28] VITALS: BP 130/76
[2024-04-28 06:52] LABS: POTASSIUM 4.2 mmol/L (3.4-5.1)
[2024-04-28 08:00] VITALS: BP 176/69
[2024-04-28] MEDS ORDERED: OMNICEF300 MG PO (09:38)
== END 2024-04-28 13:00 | disposition home or self-care (01) | DRG 689 ==
LOC: ED 18:00 → EDHOLD 19:53 → 4E 19:53 → EDHOLD 04-27 13:51 → 4E 04-27 16:18
PROVIDERS: Internal Medicine; Physician Assistant Medical; Student in an Organized Health Care Education/Training Program; ADMIT Internal Medicine; ATTEND Internal Medicine
DX: N30.01 Acute cystitis with hematuria (principal); N17.0 Acute kidney failure with tubular necrosis; D64.9 Anemia, unspecified; E66.9 Obesity, unspecified; D70.9 Neutropenia, unspecified; K21.9 Gastro-esophageal reflux disease without esophagitis; E11.65 Type 2 diabetes mellitus with hyperglycemia; E78.2 Mixed hyperlipidemia; I11.0 Hypertensive heart disease with heart failure; I50.9 Heart failure, unspecified; E11.40 Type 2 diabetes mellitus with diabetic neuropathy, unspecified; Z96.653 Presence of artificial knee joint, bilateral; Z85.038 Personal history of other malignant neoplasm of large intestine; Z90.49 Acquired absence of other specified parts of digestive tract; Z82.0 Family history of epilepsy and other diseases of the nervous system; Z80.1 Family history of malignant neoplasm of trachea, bronchus and lung; Z68.38 Body mass index [BMI] 38.0-38.9, adult

== ENCOUNTER 2025-04-30 11:07 | Emergency (ER) | payer MEDICARE ==
[~2025-04-30] VITALS: Ht 167.6 cm; Wt 105.7 kg
[~2025-04-30 11:07] MED LIST changes: +GABAPENTIN600 MG PO; +OMNICEF300 MG PO; +POTASSIUM CHLO20 ME4 PO
[2025-04-30 11:58] LABS: BASO # 0.0 10*3/uL (0.0-0.1); BASO % 0.3 % (0.0-1.0); EOS # 0.1 10*3/uL (0.0-0.4); EOS % 1.5 % (1.0-4.0); MEAN CELL VOLUME 94.9 fl (81.0-99.0); MEAN CORPUSCULAR HGB 28.8 pg (27.0-31.0); MEAN PLATELET VOLUME 8.4 fl (9.6-12.3); MONO # 0.5 10*3/uL (0.1-1.0); MONO % 7.7 % (3.0-9.0); NEUT # 3.4 10*3/uL (2.3-7.9); NEUT % 57.4 % (47.0-73.0); NUCLEATED RED BLOOD CELL 0.0 % (0.0-0.0); NUCLEATED RED BLOOD CELL 0.0 10*3/uL (0.0-0.0); PLATELET COUNT AUTOMATED 178 10*3/uL (130-400); RED CELL DISTRI WIDTH 13.7 % (0-14.5)
[2025-04-30 12:20] LABS: BUN 25 mg/dl (9-23)
[2025-04-30 13:03] VITALS: BP 148/64
[2025-04-30] MEDS ORDERED: SODIUM ZIRCONIUM CYCLOSILICATE 10 GM POWD.PACK PO ONE (13:10)
[2025-04-30] MEDS ORDERED: VIBRAMYCIN100 MG PO (13:18)
== END 2025-04-30 13:29 | disposition home or self-care (01) ==
LOC: ED 11:07
PROVIDERS: Nurse Practitioner Family
DX: T81.41XA Infection following a procedure, superficial incisional surgical site, initial encounter (principal); L02.211 Cutaneous abscess of abdominal wall; E87.5 Hyperkalemia; Z79.899 Other long term (current) drug therapy; Z79.84 Long term (current) use of oral hypoglycemic drugs; Z79.82 Long term (current) use of aspirin; Z90.49 Acquired absence of other specified parts of digestive tract; Z98.890 Other specified postprocedural states; Z96.653 Presence of artificial knee joint, bilateral; Y83.8 Other surgical procedures as the cause of abnormal reaction of the patient, or of later complication, without mention of misadventure at the time of the procedure; Y92.89 Other specified places as the place of occurrence of the external cause

== ENCOUNTER → 2025-05-07 | Outpatient (CLI) | payer MEDICARE ==
[~2025-05-07] MED LIST changes: +VIBRAMYCIN100 MG PO
== END | disposition home or self-care (01) ==
LOC: WOUNDCARE 00:38
PROVIDERS: ATTEND Nurse Practitioner Family
DX: L02.211 Cutaneous abscess of abdominal wall (principal); L20.9 Atopic dermatitis, unspecified; I11.0 Hypertensive heart disease with heart failure; I50.9 Heart failure, unspecified; E78.5 Hyperlipidemia, unspecified; K21.9 Gastro-esophageal reflux disease without esophagitis; M19.90 Unspecified osteoarthritis, unspecified site; E66.01 Morbid (severe) obesity due to excess calories; Z96.653 Presence of artificial knee joint, bilateral; Z95.818 Presence of other cardiac implants and grafts; Z90.49 Acquired absence of other specified parts of digestive tract; Z98.51 Tubal ligation status; Z68.36 Body mass index [BMI] 36.0-36.9, adult; Z98.49 Cataract extraction status, unspecified eye; Z87.891 Personal history of nicotine dependence; Z98.890 Other specified postprocedural states; Z79.84 Long term (current) use of oral hypoglycemic drugs; Z79.82 Long term (current) use of aspirin; Z79.899 Other long term (current) drug therapy